=== PATIENT | male | born 1985 | race Caucasian/White ===

== ENCOUNTER 2018-12-13 11:44 | Inpatient (IN) | payer OTHER ==
--- NOTE | 2018-12-13 14:47 | HP ---
CIWA Score Nausea/Vomitin-Mild Nausea/No Vomiting Muscle Tremors: 4-Moderate,w/Arms Extend Anxiety: 4-Mod. Anxious/Guarded Agitation: 4-Moderately Restless Paroxysmal Sweats: 3 Orientation: 0-Oriented Tacttile Disturbances: 0-None Auditory Disturbances: 0-None Visual Disturbances: 0-None Headache: 2-Mild CIWA-Ar Total Score: 18 - Admission Criteria OASAS Guidelines: Admission for Medically Managed Detox: Requires at least one of the followin. CIWA greater than 12 2. Seizures within the past 24 hours 3. Delirium tremens within the past 24 hours 4. Hallucinations within the past 24 hours 5. Acute intervention needed for co occurring medical disorder 6. Acute intervention needed for co occurring psychiatric disorder 7. Severe withdrawal that cannot be handled at a lower level of care (continued vomiting, continued diarrhea, abnormal vital signs) requiring intravenous medication and/or fluids 8. Admission ROS [facility] Chief Complaint: Pt is a 33yr old male with a history of benzodiazapene dependence seeking detox for treatment. Pt belongs to a [facility] in [place], [place] and is familiar with our detox facility and is seeking detox. Allergies/Adverse Reactions: Allergies Allergy/AdvReac Type Severity Reaction Status Date / Time citalopram hydrobromide Allergy Severe Hives Verified 12/13/18 14:06 [From [facility]] History of Present Illness: pt is a 33yr old male with a history of valium dependence seeking detox for treatment. Exam Limitations: No Limitations - Ebola screening Have you traveled outside of the country in the last 21 days: No Have you had contact with anyone from an Ebola affected area: No Have you been sick,other than usual withdrawal symptoms: No Do you have a fever: No - Review of Systems Constitutional: Chills, Diaphoresis, Loss of Appetite, Night Sweats, Changes in sleep EENT: reports: Tearing, Nose Congestion Respiratory: reports: No Symptoms reported Cardiac: reports: No Symptoms Reported GI: reports: Nausea, Poor Appetite, Poor Fluid Intake, Indigestion : reports: No Symptoms Reported Musculoskeletal: reports: No Symptoms Reported Integumentary: reports: Flushing, Sweating Neuro: reports: Headache, Tingling, Tremors Endocrine: reports: Excessive Sweating, Flushing, Intolerance to Cold, Intolerance to Heat Hematology: reports: No Symptoms Reported Psychiatric: reports: Judgement Intact, Mood/Affect Appropiate, Orientated x3, Agitated, Anxious Other Systems: Reviewed and Negative Patient History - Patient Medical History Hx Anemia: No Hx Asthma: No Hx Chronic Obstructive Pulmonary Disease (COPD): No Hx Cancer: No Hx Cardiac Disorders: No Hx Congestive Heart Failure: No Hx Hypertension: Yes (currently not on medication) Hx Hypercholesterolemia: No Hx Pacemaker: No HX Cerebrovascular Accident: No Hx Seizures: No Hx Dementia: No Hx Diabetes: No Hx Gastrointestinal Disorders: Yes (acid reflux) Hx Liver Disease: No Hx Genitourinary Disorders: No Hx Sexually Transmitted Disorders: No Hx Renal Disease (ESRD): No Hx Thyroid Disease: No Hx Human Immunodeficiency Virus (HIV): No Hx Hepatitis C: No Hx Depression: Yes Hx Suicide Attempt: Yes (pill overdose at age 23) Hx Bipolar Disorder: Yes Hx Schizophrenia: No - Patient Surgical History Past Surgical History: No Hx Neurologic Surgery: No Hx Cataract Extraction: No Hx Cardiac Surgery: No Hx Lung Surgery: No Hx Breast Surgery: No Hx Breast Biopsy: No Hx Abdominal Surgery: No Hx Appendectomy: No Hx Cholecystectomy: No Hx Genitourinary Surgery: No Hx Section: No Hx Orthopedic Surgery: No Anesthesia Reaction: No - PPD History Previous Implant?: Yes Documented Results: Negative w/o proof Implanted On Prior R Admission?: Yes PPD to be Administered?: Yes - Reproductive History Patient is a Female of Child Bearing Age (11 -55 yrs old): No - Smoking Cessation Smoking history: Current every day smoker Have you smoked in the past 12 months: Yes Aproximately how many cigarettes per day: 20 Cigars Per Day: 0 Hx Chewing Tobacco Use: No Initiated information on smoking cessation: Yes 'Breaking Loose' booklet given: 12/13/18 - Substance & Tx. History Hx Alcohol Use: No Hx Substance Use: Yes Substance Use Type: Tranquilizers Hx Substance Use Treatment: Yes (last detox [facility] 3yrs ago 2016.) - Substances Abused Valium Route: Oral Frequency: Daily Amount used: 2 tabs. (10 mg.) Age of first use: 25 Date of Last Use: 12/13/18 Family Disease History - Family Disease History Family Disease History: CA: Mother (HAD CA. OF THE COLON AND ), Other: Father (DEPENDENT ON DRUGS) Admission Physical Exam [facility] - Vital Signs Vital Signs: Vital Signs - 24 hr 12/13/18 13:10 Temperature 99 F Pulse Rate 110 H Respiratory 20 Rate Blood Pressure 140/82 - Physical General Appearance: Yes: Appropriately Dressed, Moderate Distress, Tremorous, Irritable, Sweating, Anxious HEENTM: Yes: Hearing grossly Normal, Normal Voice, Nasal Congestion, Rhinorrhea Respiratory: Yes: Lungs Clear, Normal Breath Sounds, No Respiratory Distress Neck: Yes: No masses,lesions,Nodules Breast: Yes: Within Normal Limits Cardiology: Yes: Regular Rhythm, Regular Rate, S1, S2, Tachycardia Abdominal: Yes: Normal Bowel Sounds, Non Tender, Flat Genitourinary: Yes: Within Normal Limits Back: Yes: Normal Inspection Musculoskeletal: Yes: full range of Motion Extremities: Yes: Normal Capillary Refill, Normal Inspection, Tremors Neurological: Yes: Fully Oriented, Alert, Normal Response Integumentary: Yes: Normal Color, Diaphoresis Lymphatic: Yes: Within Normal Limits - Diagnostic (1) Anxiety Current Visit: Yes Status: Chronic (2) PTSD (post-traumatic stress disorder) Current Visit: Yes Status: Acute (3) Uncomplicated sedative, hypnotic or anxiolytic withdrawal Current Visit: Yes Status: Chronic (4) GERD (gastroesophageal reflux disease) Current Visit: Yes Status: Chronic Qualifiers: Esophagitis presence: without esophagitis Qualified Code(s): K21.9 - Gastro -esophageal reflux disease without esophagitis (5) HTN (hypertension) Current Visit: Yes Status: Chronic Qualifiers: Hypertension type: essential hypertension Qualified Code(s): I10 - Essential (primary) hypertension (6) Nicotine dependence Current Visit: Yes Status: Chronic Qualifiers: Nicotine product type: cigarettes Substance use status: uncomplicated Qualified Code(s): F17.210 - Nicotine dependence, cigarettes, uncomplicated (7) Panic attack Current Visit: No Status: Chronic (8) Schizoaffective disorder Current Visit: No Status: Chronic Qualifiers: Schizoaffective disorder type: unspecified Qualified Code(s): F25.9 - Schizoaffective disorder, unspecified Comment: Historical diagnosis. Cleared for Admission S - Detox or Rehab [facility] Level of Care: Medically Managed Detox Regimen/Protocol: Valium S Breath Alcohol Content Breath Alcohol Content: 0 Urine Drug Screen - Results Drug Screen Negative: No Urine Drug Screen Results: BZO-Benzodiazepines Inpatient Rehab Admission - Rehab Decision to Admit Inpatient rehab admission?: No
[2018-12-13] MEDS ORDERED: hydrOXYzine PAMOATE 25 MG CAPSULE (FP) PO PRN (14:48)
[2018-12-13] MEDS ORDERED: P-EPHED 60MG/TRIPROLIDI 2.5MG TABLET PO PRN (14:48)
[2018-12-13] MEDS ORDERED: MAGNESIUM HYDROX 2400MG/30ML ORAL SUSPENSION 30 ML CUP PO PRN (14:48)
[2018-12-13] MEDS ORDERED: diazePAM 5 MG TABLET PO ONE (14:48)
[2018-12-13] MEDS ORDERED: ACETAMINOPHEN 325 MG TABLET (FP) PO PRN (14:48)
[2018-12-13] MEDS ORDERED: MAGNESIUM CITRATE 300 ML BOTTLE PO PRN (14:48)
[2018-12-13] MEDS ORDERED: MENTHOL/PHENOL 1 EACH UD MM PRN (14:48)
[2018-12-13] MEDS ORDERED: BISMUTH SUBSALICYLATE 524 MG/30 ML UD PO PRN (14:48)
[2018-12-13] MEDS ORDERED: ONDANSETRON *ODT* 4 MG TABLET SL PRN (14:48)
[2018-12-13] MEDS: BACLOFEN 10 MG TABLET (FP) PO SCH ×2 (17:20→22:39)
[2018-12-13] MEDS: IBUPROFEN 400 MG TABLET (FP) PO PRN (19:16)
[2018-12-13] MEDS: diazePAM 5 MG TABLET PO SCH (22:38)
[2018-12-14] MEDS: diazePAM 5 MG TABLET PO SCH ×3 (05:19→22:53)
[2018-12-14] MEDS: BACLOFEN 10 MG TABLET (FP) PO SCH ×3 (06:18→22:53)
[2018-12-14] MEDS: NICOTINE POLACRILEX 4 MG GUM BUC PRN ×3 (09:28→17:14)
[2018-12-14] MEDS: PANTOPRAZOLE 40 MG TABLET (FP) PO SCH (10:21)
[2018-12-14] MEDS: PRENATAL VITAMINS W/ FOLIC ACID TABLET (FP) PO SCH (10:21)
[2018-12-14] MEDS: diazePAM 5 MG TABLET PO PRN (10:21)
[2018-12-14] MEDS: THIAMINE HCL 100 MG TABLET (FP) PO SCH (10:21)
[2018-12-14] MEDS: NICOTINE 21 MG/24 HOURS TOPICAL PATCH TD SCH (10:22)
[2018-12-14 10:37] LABS: ALBUMIN 4.4 g/dl (3.4-5.0); ALK PHOS 100 U/L (45-117); ANION GAP 10 MMOL/L (8-16); BILIRUBIN,TOTAL 0.8 mg/dL (0.2-1); BLOOD UREA NITROGEN 17 mg/dL (7-18); CALCIUM 9.3 mg/dL (8.5-10.1); CHLORIDE 108 mmol/L (98-107); CO2 21 mmol/L (21-32); CREATININE 1.1 mg/dL (0.55-1.3); GLUCOSE,RANDOM 104 mg/dL (74-106); POTASSIUM 3.8 mmol/L (3.5-5.1); SGOT/AST 24 U/L (15-37); SGPT/ALT 34 U/L (13-61); SODIUM 139 mmol/L (136-145); TOT PROT 8.1 g/dl (6.4-8.2)
[2018-12-14 10:38] LABS: HEMATOCRIT 43.3 % (35.4-49); MCH 30.3 pg (25.7-33.7); MCHC 34.7 g/dl (32.0-35.9); MEAN CELL VOLUME 87.4 fl (80-96); MEAN PLT VOLUME 9.7 fl (7.5-11.1); PLATELET COUNT 180 K/MM3 (134-434); RBC 4.95 M/mm3 (4.00-5.60); RDW 13.9 % (11.9-15.9); WHITE BLOOD COUNT 8.7 K/mm3 (4.0-10.0)
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
--- NOTE | 2018-12-14 14:05 | EKG ---
Test Reason : Blood Pressure : / mmHG Vent. Rate : 098 BPM Atrial Rate : 098 BPM P-R Int : 134 ms QRS Dur : 084 ms QT Int : 354 ms P-R-T Axes : 049 059 052 degrees QTc Int : 451 ms NORMAL SINUS RHYTHM NONSPECIFIC T WAVE ABNORMALITY ABNORMAL ECG NO PREVIOUS ECGS AVAILABLE Confirmed by YANELI WALKER, VENANCIO ([id number]) on 12/14/2018 2:05:28 PM Referred By: Confirmed By:VENANCIO GROVES MD
[2018-12-14] MEDS: SERTRALINE HCL 50 MG TABLET (FP) PO SCH (15:57)
--- NOTE | 2018-12-14 16:37 | PN ---
S CIWA - CIWA Score Nausea/Vomitin-Mild Nausea/No Vomiting Muscle Tremors: 2 Anxiety: 4-Mod. Anxious/Guarded Agitation: 3 Paroxysmal Sweats: 1-Minimal Palms Moist Orientation: 1-Uncertain about Date Tacttile Disturbances: 0-None Auditory Disturbances: 0-None Visual Disturbances: 0-None Headache: 1-Very Mild CIWA-Ar Total Score: 13 S Progress Note (SOAP) Subjective: anxiety restlessness sweating overly worry after lunch patient appears calmer better concentration Objective: 12/14/18 16:40 Vital Signs Temperature 98.1 F 12/14/18 13:23 Pulse Rate 114 H 12/14/18 13:23 Respiratory Rate 20 12/14/18 13:23 Blood Pressure 144/93 12/14/18 13:23 O2 Sat by Pulse Oximetry (%) Laboratory Last Values WBC 8.7 K/mm3 (4.0-10.0) 12/14/18 06:00 RBC 4.95 M/mm3 (4.00-5.60) 12/14/18 06:00 Hgb 15.0 GM/dL (11.7-16.9) 12/14/18 06:00 Hct 43.3 % (35.4-49) 12/14/18 06:00 MCV 87.4 fl (80-96) 12/14/18 06:00 MCH 30.3 pg (25.7-33.7) 12/14/18 06:00 MCHC 34.7 g/dl (32.0-35.9) 12/14/18 06:00 RDW 13.9 % (11.9-15.9) 12/14/18 06:00 Plt Count 180 K/MM3 (134-434) 12/14/18 06:00 MPV 9.7 fl (7.5-11.1) D 12/14/18 06:00 Sodium 139 mmol/L (136-145) 12/14/18 06:00 Potassium 3.8 mmol/L (3.5-5.1) 12/14/18 06:00 Chloride 108 mmol/L (98-107) H 12/14/18 06:00 Carbon Dioxide 21 mmol/L (21-32) 12/14/18 06:00 Anion Gap 10 MMOL/L (8-16) 12/14/18 06:00 BUN 17 mg/dL (7-18) 12/14/18 06:00 Creatinine 1.1 mg/dL (0.55-1.3) 12/14/18 06:00 Creat Clearance w eGFR > 60 (>60) 12/14/18 06:00 Random Glucose 104 mg/dL (74-106) 12/14/18 06:00 Calcium 9.3 mg/dL (8.5-10.1) 12/14/18 06:00 Total Bilirubin 0.8 mg/dL (0.2-1) 12/14/18 06:00 AST 24 U/L (15-37) 12/14/18 06:00 ALT 34 U/L (13-61) 12/14/18 06:00 Alkaline Phosphatase 100 U/L (45-117) 12/14/18 06:00 Total Protein 8.1 g/dl (6.4-8.2) 12/14/18 06:00 Albumin 4.4 g/dl (3.4-5.0) 12/14/18 06:00 RPR Titer Nonreactive (NONREACTIVE) 12/14/18 06:00 HIV 1&2 Antibody Screen Negative 12/13/18 14:50 HIV P24 Antigen Negative 12/13/18 14:50 lab noted 12/14/18 16:40 Assessment: 12/14/18 16:41 withdrawal sx Plan: continue detox
[2018-12-14] MEDS: QUEtiapine FUMARATE 50 MG TABLET PO SCH (22:52)
[2018-12-15] MEDS: diazePAM 5 MG TABLET PO PRN (06:32)
[2018-12-15] MEDS: BACLOFEN 10 MG TABLET (FP) PO SCH ×3 (06:32→23:04)
[2018-12-15] MEDS: NICOTINE POLACRILEX 4 MG GUM BUC PRN ×4 (06:34→16:42)
[2018-12-15] MEDS: PRENATAL VITAMINS W/ FOLIC ACID TABLET (FP) PO SCH (10:13)
[2018-12-15] MEDS: NICOTINE 21 MG/24 HOURS TOPICAL PATCH TD SCH (10:13)
[2018-12-15] MEDS: SERTRALINE HCL 50 MG TABLET (FP) PO SCH (10:13)
[2018-12-15] MEDS: diazePAM 5 MG TABLET PO SCH ×2 (10:13→23:04)
[2018-12-15] MEDS: THIAMINE HCL 100 MG TABLET (FP) PO SCH (10:13)
[2018-12-15] MEDS: PANTOPRAZOLE 40 MG TABLET (FP) PO SCH (10:13)
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
[2018-12-15] MEDS ORDERED: cloNIDine HCL 0.1 MG TABLET PO ONE (15:45)
--- NOTE | 2018-12-15 16:49 | PN ---
Psychiatric Progress Note Vital Signs: Vital Signs Period Temp Pulse Resp BP Sys/Beaver Pulse Ox Last 24 Hr 96.4 F-98.9 F 76-105 16-18 133-151/68-89 Date of Session: 12/15/18 Chief Complaint:: " I apologize for my behavior. I was wrong. I was angry ". HPI: Day 3 of detoxification. Hospital course was uneventful until the patient started acting out on the unit (using profanities, racial slurs, pacing in hallways, threatening to fight a male staff). Reason : unclear. Patient was referred for a psychiatric re-evaluation. ROS: Unremarkable. No somatic complaints. Patient is ambulatory, calm, alert and fully oriented. Current Medications: Active Medications Generic Name Dose Route Start Last Admin Trade Name Freq PRN Reason Stop Dose Admin Acetaminophen 650 mg 12/13/18 14:48 Tylenol - PO Q6H PRN PAIN LEVEL 4 - 6 Acetaminophen 650 mg 12/13/18 14:48 Tylenol - PO Q6H PRN FEVER Al Hydroxide/Mg Hydroxide 30 ml 12/13/18 14:48 Mylanta Oral Suspension - PO Q6H PRN DYSPEPSIA Baclofen 10 mg 12/13/18 15:00 12/15/18 14:00 Lioresal - PO 12/19/18 14:49 10 mg Q8H LORENA Administration Bismuth Subsalicylate 524 mg 12/13/18 14:48 12/14/18 16:00 Pepto-Bismol - PO 524 mg Q1H PRN Administration DIARRHEA Clonidine 0.1 mg 12/15/18 22:00 Catapres - PO BID LORENA Diazepam 5 mg 12/15/18 10:00 12/15/18 10:13 Valium - PO 12/15/18 22:01 5 mg BID LORENA Administration Diazepam 5 mg 12/16/18 06:00 Valium - PO 12/16/18 06:01 DAILY LORENA Diazepam 10 mg 12/13/18 14:48 12/15/18 06:32 Valium - PO 12/16/18 14:47 10 mg Q4H PRN Administration WITHDRAWAL(CONT SUBST) Eucalyptus/Menthol/Phenol/Sorbitol 1 each 12/13/18 14:48 Cepastat Lozenge - MM 12/19/18 14:48 Q4H PRN SORE THROAT Hydroxyzine Pamoate 25 mg 12/13/18 14:48 Vistaril - PO 12/19/18 14:48 Q6H PRN For Anxiety Ibuprofen 400 mg 12/13/18 14:48 12/13/18 19:16 Motrin - PO 400 mg Q6H PRN Administration PAIN LEVEL 1 - 3 Magnesium Citrate 300 ml 12/13/18 14:48 Citroma - PO Q48H PRN CONSTIPATION Magnesium Hydroxide 30 ml 12/13/18 14:48 Milk Of Magnesia - PO PRN PRN CONSTIPATION Melatonin 5 mg 12/13/18 14:48 Melatonin PO HS PRN INSOMNIA Nicotine 21 mg 12/14/18 10:00 12/15/18 10:13 Nicoderm Patch - TD Not Given DAILY LORENA Nicotine Polacrilex 4 mg 12/13/18 14:48 12/15/18 16:42 Nicorette Gum - BUC 4 mg Q2H PRN Administration NICOTINE REPLACEMENT RX Ondansetron HCl 4 mg 12/13/18 14:48 12/14/18 12:15 Zofran Odt - SL 12/19/18 14:48 4 mg Q12H PRN Administration Nausea/Vomiting Pantoprazole Sodium 40 mg 12/14/18 10:00 12/15/18 10:13 Protonix - PO 40 mg DAILY LORENA Administration Multivit/Folic Acid/Iron 1 tab 12/14/18 10:00 12/15/18 10:13 Vitamins (Sjr) - PO 1 tab DAILY LORENA Administration Pseudoephedrine/Triprolidine 1 combo 12/13/18 14:48 Actifed - PO 12/19/18 14:49 Q6H PRN NASAL CONGESTION Quetiapine Fumarate 50 mg 12/14/18 22:00 12/14/18 22:52 Seroquel - PO Not Given HS LORENA Sertraline HCl 50 mg 12/14/18 14:05 12/15/18 10:13 Zoloft - PO 50 mg DAILY LORENA Administration Thiamine HCl 100 mg 12/14/18 10:00 12/15/18 10:13 Vitamin B1 - PO 100 mg DAILY LORENA Administration Medication(s) Change(s): Medications reviewed. Will increase seroquel to 100 mg po hs. Side effects/benefits discussed. Patient is in agreement with this intervention. Current Side Effect: No Lab tests ordered: No Lab tests reviewed: Yes Provider note:: Chart reviewed. news operations manager Harper's note of 12/14/18 : appreciated. Patient is interviewed. Mr Leslie presented as a good historian. Found to be calm, apologetic, apprehensive about the possible consequences of his behavior (administrative discharge, interruption of detoxification and cancellation of an already planned admission to [facility]) and remorseful about the distress caused to others by his outburst. " What I did was wrong. I have no right to be in this man's face with threats. I did not come here for that. I was angry at my girl on the phone. We are going through a rough time. This is not a reason to go off on the staff. I apologize for my behavior and I hope that people will understand ". Interview went well : patient maintains adequate impulse control; answers questions appropriately; expresses contrition for his actions and promises adherence to unit rules + regulations. No psychosis or jairo elicited. No suicidal or homicidal ideation, intent or plan. Mr Leslie has regained his composure and he is now fearful of having compromised his plan of rehabilitation. Patient is stable. He does NOT meet criteria for transfer to a psychiatric institution. Firm limits are set : treatment will continue on the condition that rules and boundaries are NOT violated. Mr Leslie has verbalized his understanding and acquiesced to adherence to regulations. Discussed with the Multidisciplinary team. Case has also been revisited with nurse fabrication supervisor Richard + senior program manager Jada Son. Total face to face time:: 65 Mental Status Exam - Mental Status Exam Alert and Oriented to: Time, Place, Person Cognitive Function: Good Patient Appearance: Well Groomed Mood: Apprehensive, Hopeful Affect: Appropriate, Normal Range Patient Behavior: Appropriate, Cooperative Speech Pattern: Clear, Appropriate Voice Loudness: Normal Thought Process: Goal Oriented Thought Disorder: Not Present Hallucinations: Denies Suicidal Ideation: Denies Homicidal Ideation: Denies Insight/Judgement: Fair Sleep: Well Appetite: Good Muscle strength/Tone: Normal Gait/Station: Normal Psychiatric Treatment Plan - Problem List (1) Uncomplicated sedative, hypnotic or anxiolytic withdrawal Current Visit: Yes Comment: . (2) Nicotine dependence Current Visit: Yes Qualifiers: Nicotine product type: cigarettes Substance use status: uncomplicated Qualified Code(s): F17.210 - Nicotine dependence, cigarettes, uncomplicated Comment: . (3) Schizoaffective disorder Current Visit: Yes Qualifiers: Schizoaffective disorder type: unspecified Qualified Code(s): F25.9 - Schizoaffective disorder, unspecified Comment: .As per self-report and records.
[2018-12-15] MEDS: cloNIDine HCL 0.1 MG TABLET PO SCH (23:04)
[2018-12-15] MEDS: QUEtiapine FUMARATE 50 MG TABLET PO SCH (23:04)
[2018-12-16] MEDS: NICOTINE POLACRILEX 4 MG GUM BUC PRN ×5 (05:12→21:25)
[2018-12-16] MEDS ORDERED: diazePAM 5 MG TABLET PO SCH (06:00)
[2018-12-16] MEDS: BACLOFEN 10 MG TABLET (FP) PO SCH ×3 (06:24→22:00)
[2018-12-16] MEDS: SERTRALINE HCL 50 MG TABLET (FP) PO SCH (10:40)
[2018-12-16] MEDS: THIAMINE HCL 100 MG TABLET (FP) PO SCH (10:40)
[2018-12-16] MEDS: PRENATAL VITAMINS W/ FOLIC ACID TABLET (FP) PO SCH (10:40)
[2018-12-16] MEDS: PANTOPRAZOLE 40 MG TABLET (FP) PO SCH (10:40)
[2018-12-16] MEDS: cloNIDine HCL 0.1 MG TABLET PO SCH ×2 (10:41→21:23)
[2018-12-16] MEDS: NICOTINE 21 MG/24 HOURS TOPICAL PATCH TD SCH (10:41)
--- NOTE | 2018-12-16 14:16 | DS ---
[facility] Detox Discharge Summary Admission Date: 12/13/18 Discharge Date: 12/16/18 - History Present History: Sedative Dependence Additional Comments: PATIENT REPORTS THAT CURRENT WITHDRAWAL SYMPTOMS ARE MINIMAL AND THAT HE FEELS WELL OVERALL AT TIME OF DISCHARGE FROM DETOX UNIT. PATIENT GOING TO [facility] ([place], [place]) FOR AFTERCARE. PATIENT WAS DISCHARGED FROM DETOX UNIT TO BE TAKEN OVER TO REHAB UNIT IN STABLE MEDICAL CONDITION. Pertinent Past History: HTN, G.E.R.D., Depressive Disorder, Schizoaffective Disorder, History of Bipolar Disorder, Nicotine Dependence, Anxiety, History Of Panic Attacks, History Of P.T.S.D. - Physical Exam Results Vital Signs: Vital Signs Temperature 98.4 F 12/16/18 13:50 Pulse Rate 100 H 12/16/18 13:50 Respiratory Rate 20 12/16/18 13:50 Blood Pressure 97/58 L 12/16/18 13:50 O2 Sat by Pulse Oximetry (%) Pertinent Admission Physical Exam Findings: WITHDRAWAL SYMPTOMS. Laboratory Tests 12/13/18 12/14/18 12/14/18 14:50 06:00 06:00 WBC 8.7 RBC 4.95 Hgb 15.0 Hct 43.3 MCV 87.4 MCH 30.3 MCHC 34.7 RDW 13.9 Plt Count 180 MPV 9.7 D Sodium 139 Potassium 3.8 Chloride 108 H Carbon Dioxide 21 Anion Gap 10 BUN 17 Creatinine 1.1 Creat Clearance w eGFR > 60 Random Glucose 104 Calcium 9.3 Total Bilirubin 0.8 AST 24 ALT 34 Alkaline Phosphatase 100 Total Protein 8.1 Albumin 4.4 RPR Titer HIV 1&2 Antibody Screen Negative HIV P24 Antigen Negative 12/14/18 06:00 WBC RBC Hgb Hct MCV MCH MCHC RDW Plt Count MPV Sodium Potassium Chloride Carbon Dioxide Anion Gap BUN Creatinine Creat Clearance w eGFR Random Glucose Calcium Total Bilirubin AST ALT Alkaline Phosphatase Total Protein Albumin RPR Titer Nonreactive HIV 1&2 Antibody Screen HIV P24 Antigen LABS NOTED. - Treatment Hospital Course: Detox Protocol Followed, Detoxed Safely, Responded well, Discharged Condition Good, Rehab Referral Accepted Patient has Accepted a Rehab Referral to: [facility] ([place], [place]). - Medication Discharge Medications: Ambulatory Orders Pantoprazole Sodium [Protonix -] 40 mg PO DAILY #30 tablet.ec 07/11/16 - Diagnosis (1) Depressive disorder Current Visit: Yes Status: Acute (2) Anxiety Current Visit: Yes Status: Chronic (3) GERD (gastroesophageal reflux disease) Current Visit: Yes Status: Chronic Qualifiers: Esophagitis presence: without esophagitis Qualified Code(s): K21.9 - Gastro -esophageal reflux disease without esophagitis (4) HTN (hypertension) Current Visit: Yes Status: Chronic Qualifiers: Hypertension type: essential hypertension Qualified Code(s): I10 - Essential (primary) hypertension (5) Nicotine dependence Current Visit: Yes Status: Chronic Qualifiers: Nicotine product type: cigarettes Substance use status: uncomplicated Qualified Code(s): F17.210 - Nicotine dependence, cigarettes, uncomplicated (6) PTSD (post-traumatic stress disorder) Current Visit: Yes Status: Chronic (7) Schizoaffective disorder Current Visit: Yes Status: Chronic Qualifiers: Schizoaffective disorder type: unspecified Qualified Code(s): F25.9 - Schizoaffective disorder, unspecified (8) Uncomplicated sedative, hypnotic or anxiolytic withdrawal Current Visit: Yes Status: Chronic (9) Panic attack Current Visit: No Status: Chronic - AMA Did Patient Leave Against Medical Advice: No
[2018-12-16 14:17] VITALS: BMI 30.5
--- NOTE | 2018-12-16 14:27 | HP ---
[facility] Rehab Assess/Revision - Admission History Admitted to Rehab from: [facility] Date of Admission to Rehab: 12/16/2018 - Vital signs Vital Signs: Vital Signs Period Temp Pulse Resp BP Sys/Beaver Pulse Ox Last 24 Hr 92.4 F-98.4 F 74-107 18-20 97-151/58-88 - Findings Detox History & Physical reviewed: Yes Concur with findings: Yes Comments/Additional Findings: PATIENT'S MEDICAL / MEDICATION HISTORY REVIEWED PRIOR TO DISCHARGE FROM DETOX UNIT. PATIENT WAS DISCHARGED FROM DETOX UNIT TO BE TAKEN TO REHAB UNIT IN STABLE MEDICAL CONDITION. Inpatient Rehab Admission - Rehab Decision to Admit Inpatient rehab admission?: Yes - Initial Determination Are CD services needed?: Yes Free of communicable disease: Yes Not in need of hospitalization: Yes - Rehab Admission Criteria Previous failed treatment: Yes Poor recovery environment: No Comorbidities: Yes Lacks judgement: Yes Patient is meeting Inpatient Rehab admission criteria:: Yes
[2018-12-16] MEDS: LIDOCAINE 5% TOPICAL PATCH TP SCH (15:22)
[2018-12-16] MEDS: QUEtiapine FUMARATE 50 MG TABLET PO SCH (21:23)
[2018-12-16] MEDS: LIDOCAINE PATCH REMOVAL MC SCH (21:23)
[2018-12-16] MEDS: MELATONIN 5 MG TABLETS PO PRN (21:24)
[2018-12-17] MEDS: BACLOFEN 10 MG TABLET (FP) PO SCH ×3 (06:31→22:06)
[2018-12-17] MEDS: NICOTINE POLACRILEX 4 MG GUM BUC PRN ×5 (06:32→21:36)
[2018-12-17] MEDS: LIDOCAINE 5% TOPICAL PATCH TP SCH (10:06)
[2018-12-17] MEDS: NICOTINE 21 MG/24 HOURS TOPICAL PATCH TD SCH (10:06)
[2018-12-17] MEDS: PRENATAL VITAMINS W/ FOLIC ACID TABLET (FP) PO SCH (10:07)
[2018-12-17] MEDS: THIAMINE HCL 100 MG TABLET (FP) PO SCH (10:07)
[2018-12-17] MEDS: PANTOPRAZOLE 40 MG TABLET (FP) PO SCH (10:07)
[2018-12-17] MEDS: SERTRALINE HCL 50 MG TABLET (FP) PO SCH (10:07)
[2018-12-17] MEDS: cloNIDine HCL 0.1 MG TABLET PO SCH ×2 (10:07→21:34)
[2018-12-17] MEDS: LIDOCAINE PATCH REMOVAL MC SCH (21:34)
[2018-12-17] MEDS: QUEtiapine FUMARATE 50 MG TABLET PO SCH (21:34)
[2018-12-17] MEDS: MELATONIN 5 MG TABLETS PO PRN (21:35)
[2018-12-18] MEDS: BACLOFEN 10 MG TABLET (FP) PO SCH ×3 (06:22→23:12)
[2018-12-18] MEDS: NICOTINE POLACRILEX 4 MG GUM BUC PRN ×6 (06:23→21:28)
[2018-12-18] MEDS: PANTOPRAZOLE 40 MG TABLET (FP) PO SCH (09:56)
[2018-12-18] MEDS: LIDOCAINE 5% TOPICAL PATCH TP SCH (09:56)
[2018-12-18] MEDS: PRENATAL VITAMINS W/ FOLIC ACID TABLET (FP) PO SCH (09:56)
[2018-12-18] MEDS: cloNIDine HCL 0.1 MG TABLET PO SCH ×2 (09:56→21:27)
[2018-12-18] MEDS: THIAMINE HCL 100 MG TABLET (FP) PO SCH (09:56)
[2018-12-18] MEDS: SERTRALINE HCL 50 MG TABLET (FP) PO SCH (09:56)
[2018-12-18] MEDS: NICOTINE 21 MG/24 HOURS TOPICAL PATCH TD SCH (09:58)
[2018-12-18] MEDS: QUEtiapine FUMARATE 50 MG TABLET PO SCH (21:27)
[2018-12-18] MEDS: LIDOCAINE PATCH REMOVAL MC SCH (21:28)
[2018-12-19] MEDS: BACLOFEN 10 MG TABLET (FP) PO SCH (06:26)
[2018-12-19] MEDS: NICOTINE POLACRILEX 4 MG GUM BUC PRN ×5 (06:27→21:22)
[2018-12-19] MEDS: ACETAMINOPHEN 325 MG TABLET (FP) PO PRN (06:52)
[2018-12-19] MEDS: PANTOPRAZOLE 40 MG TABLET (FP) PO SCH (09:52)
[2018-12-19] MEDS: PRENATAL VITAMINS W/ FOLIC ACID TABLET (FP) PO SCH (09:52)
[2018-12-19] MEDS: LIDOCAINE 5% TOPICAL PATCH TP SCH (09:52)
[2018-12-19] MEDS: SERTRALINE HCL 50 MG TABLET (FP) PO SCH (09:52)
[2018-12-19] MEDS: cloNIDine HCL 0.1 MG TABLET PO SCH ×2 (09:52→21:21)
[2018-12-19] MEDS: THIAMINE HCL 100 MG TABLET (FP) PO SCH (09:52)
[2018-12-19] MEDS: NICOTINE 21 MG/24 HOURS TOPICAL PATCH TD SCH (09:52)
[2018-12-19] MEDS: QUEtiapine FUMARATE 50 MG TABLET PO SCH (21:21)
[2018-12-19] MEDS: LIDOCAINE PATCH REMOVAL MC SCH (21:21)
[2018-12-20] MEDS: cloNIDine HCL 0.1 MG TABLET PO SCH ×2 (09:52→21:16)
[2018-12-20] MEDS: THIAMINE HCL 100 MG TABLET (FP) PO SCH (09:52)
[2018-12-20] MEDS: PRENATAL VITAMINS W/ FOLIC ACID TABLET (FP) PO SCH (09:52)
[2018-12-20] MEDS: PANTOPRAZOLE 40 MG TABLET (FP) PO SCH (09:52)
[2018-12-20] MEDS: LIDOCAINE 5% TOPICAL PATCH TP SCH (09:52)
[2018-12-20] MEDS: SERTRALINE HCL 50 MG TABLET (FP) PO SCH (09:52)
[2018-12-20] MEDS: NICOTINE 21 MG/24 HOURS TOPICAL PATCH TD SCH (09:53)
[2018-12-20] MEDS: NICOTINE POLACRILEX 4 MG GUM BUC PRN ×3 (09:54→21:16)
[2018-12-20] MEDS: IBUPROFEN 400 MG TABLET (FP) PO PRN (12:58)
[2018-12-20] MEDS ORDERED: hydrOXYzine PAMOATE 25 MG CAPSULE (FP) PO ONE (15:40)
--- NOTE | 2018-12-20 15:42 | PN ---
[facility] Progress Note (SOAP) Subjective: client is feeling anxious. states he has a hx of anxiety and depression, now triggered by being here, Objective: 12/20/18 15:41 denies harm to self and others, denies suicidal thoughts, does endorse feeling anxious. Assessment: 12/20/18 15:42 Anxiety Plan: Vistaril 25mg once ordered.
--- NOTE | 2018-12-20 16:29 | PN ---
Psychiatric Progress Note Vital Signs: Vital Signs Period Temp Pulse Resp BP Sys/Beaver Pulse Ox Last 24 Hr 98.1 F 109 20-20 124/76 Date of Session: 12/20/18 Chief Complaint:: " I was feeling anxious ". HPI: Day 4 in rehabilitation. Patient has been doing fine until today when he approached staff with complaint of jitteriness and anxious mood. Psychiatric re- consult is requested to address the patient's distress and determine proper disposition (Dr Shore alerted the consultation team via messaging). Mr Leslie came to [address] after completing detoxification on . ROS: Noted as ambulatory, alert and fully oriented. Calm and cooperative. Found calmy sitting at a table, making a telephone call. No evidence of acute distress. Current Medications: Active Medications Generic Name Dose Route Start Last Admin Trade Name Freq PRN Reason Stop Dose Admin Acetaminophen 650 mg 12/13/18 14:48 12/19/18 06:52 Tylenol - PO 650 mg Q6H PRN Administration PAIN LEVEL 4 - 6 Acetaminophen 650 mg 12/13/18 14:48 Tylenol - PO Q6H PRN FEVER Al Hydroxide/Mg Hydroxide 30 ml 12/13/18 14:48 Mylanta Oral Suspension - PO Q6H PRN DYSPEPSIA Bismuth Subsalicylate 524 mg 12/13/18 14:48 12/14/18 16:00 Pepto-Bismol - PO 524 mg Q1H PRN Administration DIARRHEA Clonidine 0.1 mg 12/15/18 22:00 12/20/18 09:52 Catapres - PO 0.1 mg BID LORENA Administration Ibuprofen 400 mg 12/13/18 14:48 12/20/18 12:58 Motrin - PO 400 mg Q6H PRN Administration PAIN LEVEL 1 - 3 Lidocaine 1 patch 12/16/18 15:00 12/20/18 09:52 Lidoderm Patch - TP 1 patch DAILY LORENA Administration Magnesium Citrate 300 ml 12/13/18 14:48 Citroma - PO Q48H PRN CONSTIPATION Magnesium Hydroxide 30 ml 12/13/18 14:48 Milk Of Magnesia - PO PRN PRN CONSTIPATION Melatonin 5 mg 12/13/18 14:48 12/17/18 21:35 Melatonin PO 5 mg HS PRN Administration INSOMNIA Miscellaneous 1 each 12/16/18 22:00 12/19/18 21:21 Lidoderm Patch Removal MC 1 each DAILY@2200 LORENA Administration Nicotine 21 mg 12/14/18 10:00 12/20/18 09:53 Nicoderm Patch - TD Not Given DAILY LORENA Nicotine Polacrilex 4 mg 12/13/18 14:48 12/20/18 09:54 Nicorette Gum - BUC 4 mg Q2H PRN Administration NICOTINE REPLACEMENT RX Pantoprazole Sodium 40 mg 12/14/18 10:00 12/20/18 09:52 Protonix - PO 40 mg DAILY LORENA Administration Multivit/Folic Acid/Iron 1 tab 12/14/18 10:00 12/20/18 09:52 Vitamins (Sjr) - PO 1 tab DAILY LORENA Administration Quetiapine Fumarate 100 mg 12/20/18 22:00 Seroquel - PO HS LORENA Sertraline HCl 50 mg 12/14/18 14:05 12/20/18 09:52 Zoloft - PO 50 mg DAILY LORENA Administration Thiamine HCl 100 mg 12/14/18 10:00 12/20/18 09:52 Vitamin B1 - PO 100 mg DAILY LORENA Administration Medication(s) Change(s): Medications discussed. In response to the report of transient episodes of anxiety. Mood stabilizers reviewed with the patient. He is presented with a selection of different agents (topiramate, lamotrigine, oxcarbazepine, carbamazepine). Depakote was excluded (rejected by the patient). Mr Leslie chose the option of titration of seroquel, 100 mg po hs, with the full knowledge of its side effects (sedation, metabolic syndrome, movement disorder) . Patient has expressed the wish to reflect on the proposed choices of mood stabilizers before making own decision. Current Side Effect: No Lab tests ordered: No Lab tests reviewed: Yes Provider note:: Chart reviewed. Progress notes for all disciplines are appreciated. Met with the patient to address his concerns. Noted as pleasant, friendly, communicative and well-controlled. " I was a little anxious but not to the point of losing control or hurt myself. It happens once in a while. I miss my family and my girlfriend ". Patient is provided time and space to ventilate. Admits to feeling much better at end of session. Promises to work with the psychiatrist on the issue of optimization of his medication regimen. No complaint of suicidal/homicidal ideation, intent or plan. Stable mental status. Mr Leslie remains focused on continuing treatment at [facility]. No clinical indication for a transfer to a psychiatric institution. Total face to face time:: 35 Mental Status Exam - Mental Status Exam Alert and Oriented to: Time, Place, Person Cognitive Function: Good Patient Appearance: Well Groomed Mood: Hopeful Affect: Appropriate, Normal Range Patient Behavior: Appropriate, Cooperative Speech Pattern: Clear Voice Loudness: Normal Thought Process: Intact, Goal Oriented Thought Disorder: Not Present Hallucinations: Denies Suicidal Ideation: Denies Homicidal Ideation: Denies Insight/Judgement: Fair (much improved) Sleep: Fair Appetite: Good Muscle strength/Tone: Normal Gait/Station: Normal Psychiatric Treatment Plan - Problem List (1) Uncomplicated sedative, hypnotic or anxiolytic withdrawal Current Visit: Yes Comment: . (2) Nicotine dependence Current Visit: Yes Qualifiers: Nicotine product type: cigarettes Substance use status: uncomplicated Qualified Code(s): F17.210 - Nicotine dependence, cigarettes, uncomplicated Comment: . (3) Schizoaffective disorder Current Visit: Yes Qualifiers: Schizoaffective disorder type: unspecified Qualified Code(s): F25.9 - Schizoaffective disorder, unspecified Comment: .As per self-report and records.
[2018-12-20] MEDS: MELATONIN 5 MG TABLETS PO PRN (21:16)
[2018-12-20] MEDS: QUEtiapine FUMARATE 100 MG TABLET (FP) PO SCH (21:55)
[2018-12-20] MEDS: LIDOCAINE PATCH REMOVAL MC SCH (23:11)
[2018-12-21] MEDS: NICOTINE POLACRILEX 4 MG GUM BUC PRN ×6 (06:29→21:08)
[2018-12-21] MEDS: PRENATAL VITAMINS W/ FOLIC ACID TABLET (FP) PO SCH (10:00)
[2018-12-21] MEDS: THIAMINE HCL 100 MG TABLET (FP) PO SCH (10:00)
[2018-12-21] MEDS: PANTOPRAZOLE 40 MG TABLET (FP) PO SCH (10:00)
[2018-12-21] MEDS: SERTRALINE HCL 50 MG TABLET (FP) PO SCH (10:01)
[2018-12-21] MEDS: cloNIDine HCL 0.1 MG TABLET PO SCH ×2 (10:01→21:07)
[2018-12-21] MEDS: LIDOCAINE 5% TOPICAL PATCH TP SCH (10:01)
[2018-12-21] MEDS: IBUPROFEN 400 MG TABLET (FP) PO PRN (10:01)
[2018-12-21] MEDS: NICOTINE 21 MG/24 HOURS TOPICAL PATCH TD SCH (10:01)
[2018-12-21] MEDS: hydrOXYzine PAMOATE 50 MG CAPSULE (FP) PO PRN (21:07)
[2018-12-21] MEDS: MELATONIN 5 MG TABLETS PO PRN (21:07)
[2018-12-21] MEDS: LIDOCAINE PATCH REMOVAL MC SCH (21:08)
[2018-12-21] MEDS: QUEtiapine FUMARATE 100 MG TABLET (FP) PO SCH (21:08)
[2018-12-22] MEDS: NICOTINE 21 MG/24 HOURS TOPICAL PATCH TD SCH (09:52)
[2018-12-22] MEDS: LIDOCAINE 5% TOPICAL PATCH TP SCH (09:52)
[2018-12-22] MEDS: PANTOPRAZOLE 40 MG TABLET (FP) PO SCH (09:52)
[2018-12-22] MEDS: cloNIDine HCL 0.1 MG TABLET PO SCH ×2 (09:52→21:10)
[2018-12-22] MEDS: THIAMINE HCL 100 MG TABLET (FP) PO SCH (09:52)
[2018-12-22] MEDS: PRENATAL VITAMINS W/ FOLIC ACID TABLET (FP) PO SCH (09:52)
[2018-12-22] MEDS: SERTRALINE HCL 50 MG TABLET (FP) PO SCH (09:52)
[2018-12-22] MEDS: NICOTINE POLACRILEX 4 MG GUM BUC PRN ×6 (09:54→23:13)
[2018-12-22] MEDS: hydrOXYzine PAMOATE 50 MG CAPSULE (FP) PO PRN (17:58)
[2018-12-22] MEDS: MELATONIN 5 MG TABLETS PO PRN (21:10)
[2018-12-22] MEDS: QUEtiapine FUMARATE 100 MG TABLET (FP) PO SCH (21:11)
[2018-12-22] MEDS: LIDOCAINE PATCH REMOVAL MC SCH (21:11)
[2018-12-23] MEDS: SERTRALINE HCL 50 MG TABLET (FP) PO SCH (09:59)
[2018-12-23] MEDS: PRENATAL VITAMINS W/ FOLIC ACID TABLET (FP) PO SCH (09:59)
[2018-12-23] MEDS: LIDOCAINE 5% TOPICAL PATCH TP SCH (09:59)
[2018-12-23] MEDS: PANTOPRAZOLE 40 MG TABLET (FP) PO SCH (10:00)
[2018-12-23] MEDS: THIAMINE HCL 100 MG TABLET (FP) PO SCH (10:00)
[2018-12-23] MEDS: hydrOXYzine PAMOATE 50 MG CAPSULE (FP) PO PRN ×2 (10:00→21:23)
[2018-12-23] MEDS: NICOTINE 21 MG/24 HOURS TOPICAL PATCH TD SCH (10:00)
[2018-12-23] MEDS: cloNIDine HCL 0.1 MG TABLET PO SCH ×2 (10:00→21:23)
[2018-12-23] MEDS: NICOTINE POLACRILEX 4 MG GUM BUC PRN ×3 (12:54→21:24)
[2018-12-23] MEDS: QUEtiapine FUMARATE 100 MG TABLET (FP) PO SCH (21:23)
[2018-12-23] MEDS: MELATONIN 5 MG TABLETS PO PRN (21:23)
[2018-12-23] MEDS: LIDOCAINE PATCH REMOVAL MC SCH (21:24)
[2018-12-24] MEDS: PANTOPRAZOLE 40 MG TABLET (FP) PO SCH (09:53)
[2018-12-24] MEDS: cloNIDine HCL 0.1 MG TABLET PO SCH ×2 (09:53→22:04)
[2018-12-24] MEDS: NICOTINE 21 MG/24 HOURS TOPICAL PATCH TD SCH (09:53)
[2018-12-24] MEDS: LIDOCAINE 5% TOPICAL PATCH TP SCH (09:54)
[2018-12-24] MEDS: PRENATAL VITAMINS W/ FOLIC ACID TABLET (FP) PO SCH (09:54)
[2018-12-24] MEDS: THIAMINE HCL 100 MG TABLET (FP) PO SCH (09:54)
[2018-12-24] MEDS: SERTRALINE HCL 50 MG TABLET (FP) PO SCH (09:54)
[2018-12-24] MEDS: ACETAMINOPHEN 325 MG TABLET (FP) PO PRN ×2 (09:55→15:50)
[2018-12-24] MEDS: NICOTINE POLACRILEX 4 MG GUM BUC PRN ×2 (15:52→22:05)
[2018-12-24] MEDS: MELATONIN 5 MG TABLETS PO PRN (22:04)
[2018-12-24] MEDS: hydrOXYzine PAMOATE 50 MG CAPSULE (FP) PO PRN (22:04)
[2018-12-24] MEDS: QUEtiapine FUMARATE 100 MG TABLET (FP) PO SCH (22:04)
[2018-12-24] MEDS: LIDOCAINE PATCH REMOVAL MC SCH (22:06)
[2018-12-25] MEDS: NICOTINE POLACRILEX 4 MG GUM BUC PRN ×5 (06:56→21:21)
[2018-12-25] MEDS: hydrOXYzine PAMOATE 50 MG CAPSULE (FP) PO PRN ×2 (10:03→16:37)
[2018-12-25] MEDS: SERTRALINE HCL 50 MG TABLET (FP) PO SCH (10:03)
[2018-12-25] MEDS: PRENATAL VITAMINS W/ FOLIC ACID TABLET (FP) PO SCH (10:03)
[2018-12-25] MEDS: cloNIDine HCL 0.1 MG TABLET PO SCH ×2 (10:03→21:20)
[2018-12-25] MEDS: LIDOCAINE 5% TOPICAL PATCH TP SCH (10:03)
[2018-12-25] MEDS: PANTOPRAZOLE 40 MG TABLET (FP) PO SCH (10:04)
[2018-12-25] MEDS: THIAMINE HCL 100 MG TABLET (FP) PO SCH (10:04)
[2018-12-25] MEDS: NICOTINE 21 MG/24 HOURS TOPICAL PATCH TD SCH (10:05)
[2018-12-25] MEDS: QUEtiapine FUMARATE 100 MG TABLET (FP) PO SCH (21:19)
[2018-12-25] MEDS: LIDOCAINE PATCH REMOVAL MC SCH (21:19)
[2018-12-26] MEDS: SERTRALINE HCL 50 MG TABLET (FP) PO SCH (10:05)
[2018-12-26] MEDS: THIAMINE HCL 100 MG TABLET (FP) PO SCH (10:05)
[2018-12-26] MEDS: cloNIDine HCL 0.1 MG TABLET PO SCH ×2 (10:05→21:19)
[2018-12-26] MEDS: PRENATAL VITAMINS W/ FOLIC ACID TABLET (FP) PO SCH (10:05)
[2018-12-26] MEDS: LIDOCAINE 5% TOPICAL PATCH TP SCH (10:06)
[2018-12-26] MEDS: NICOTINE 21 MG/24 HOURS TOPICAL PATCH TD SCH (10:06)
[2018-12-26] MEDS: PANTOPRAZOLE 40 MG TABLET (FP) PO SCH (10:06)
[2018-12-26] MEDS: NICOTINE POLACRILEX 4 MG GUM BUC PRN ×4 (10:08→21:22)
[2018-12-26] MEDS: QUEtiapine FUMARATE 100 MG TABLET (FP) PO SCH (21:19)
[2018-12-26] MEDS: LIDOCAINE PATCH REMOVAL MC SCH (21:19)
[2018-12-27] MEDS: NICOTINE POLACRILEX 4 MG GUM BUC PRN ×5 (06:51→21:39)
[2018-12-27] MEDS: SERTRALINE HCL 50 MG TABLET (FP) PO SCH (09:51)
[2018-12-27] MEDS: cloNIDine HCL 0.1 MG TABLET PO SCH ×2 (09:51→21:38)
[2018-12-27] MEDS: PRENATAL VITAMINS W/ FOLIC ACID TABLET (FP) PO SCH (09:51)
[2018-12-27] MEDS: THIAMINE HCL 100 MG TABLET (FP) PO SCH (09:51)
[2018-12-27] MEDS: LIDOCAINE 5% TOPICAL PATCH TP SCH (09:51)
[2018-12-27] MEDS: PANTOPRAZOLE 40 MG TABLET (FP) PO SCH (09:51)
[2018-12-27] MEDS: NICOTINE 21 MG/24 HOURS TOPICAL PATCH TD SCH (09:51)
[2018-12-27] MEDS: hydrOXYzine PAMOATE 50 MG CAPSULE (FP) PO PRN ×2 (13:26→21:38)
[2018-12-27] MEDS: IBUPROFEN 400 MG TABLET (FP) PO PRN (17:50)
[2018-12-27] MEDS: MELATONIN 5 MG TABLETS PO PRN (21:38)
[2018-12-27] MEDS: QUEtiapine FUMARATE 100 MG TABLET (FP) PO SCH (21:38)
[2018-12-27] MEDS: LIDOCAINE PATCH REMOVAL MC SCH (21:39)
[2018-12-28] MEDS: NICOTINE POLACRILEX 4 MG GUM BUC PRN ×7 (06:17→20:42)
[2018-12-28] MEDS: THIAMINE HCL 100 MG TABLET (FP) PO SCH (09:48)
[2018-12-28] MEDS: NICOTINE 21 MG/24 HOURS TOPICAL PATCH TD SCH (09:48)
[2018-12-28] MEDS: PANTOPRAZOLE 40 MG TABLET (FP) PO SCH (09:48)
[2018-12-28] MEDS: LIDOCAINE 5% TOPICAL PATCH TP SCH (09:48)
[2018-12-28] MEDS: cloNIDine HCL 0.1 MG TABLET PO SCH ×2 (09:48→21:28)
[2018-12-28] MEDS: PRENATAL VITAMINS W/ FOLIC ACID TABLET (FP) PO SCH (09:48)
[2018-12-28] MEDS: SERTRALINE HCL 50 MG TABLET (FP) PO SCH (09:48)
[2018-12-28] MEDS: ACETAMINOPHEN 325 MG TABLET (FP) PO PRN (20:40)
[2018-12-28] MEDS: LIDOCAINE PATCH REMOVAL MC SCH (21:28)
[2018-12-28] MEDS: MELATONIN 5 MG TABLETS PO PRN (21:28)
[2018-12-28] MEDS: hydrOXYzine PAMOATE 50 MG CAPSULE (FP) PO PRN (21:28)
[2018-12-28] MEDS: QUEtiapine FUMARATE 100 MG TABLET (FP) PO SCH (22:03)
[2018-12-29] MEDS: NICOTINE POLACRILEX 4 MG GUM BUC PRN ×5 (06:30→21:22)
[2018-12-29] MEDS: PRENATAL VITAMINS W/ FOLIC ACID TABLET (FP) PO SCH (09:50)
[2018-12-29] MEDS: PANTOPRAZOLE 40 MG TABLET (FP) PO SCH (09:50)
[2018-12-29] MEDS: SERTRALINE HCL 50 MG TABLET (FP) PO SCH (09:50)
[2018-12-29] MEDS: THIAMINE HCL 100 MG TABLET (FP) PO SCH (09:50)
[2018-12-29] MEDS: cloNIDine HCL 0.1 MG TABLET PO SCH ×2 (09:50→21:21)
[2018-12-29] MEDS: LIDOCAINE 5% TOPICAL PATCH TP SCH (09:51)
[2018-12-29] MEDS: NICOTINE 21 MG/24 HOURS TOPICAL PATCH TD SCH (09:51)
[2018-12-29] MEDS: hydrOXYzine PAMOATE 50 MG CAPSULE (FP) PO PRN (14:56)
[2018-12-29] MEDS: IBUPROFEN 400 MG TABLET (FP) PO PRN (16:30)
[2018-12-29] MEDS: QUEtiapine FUMARATE 100 MG TABLET (FP) PO SCH (21:21)
[2018-12-29] MEDS: MELATONIN 5 MG TABLETS PO PRN (21:21)
[2018-12-29] MEDS: LIDOCAINE PATCH REMOVAL MC SCH (21:21)
[2018-12-30] MEDS: NICOTINE POLACRILEX 4 MG GUM BUC PRN ×6 (06:56→21:10)
[2018-12-30] MEDS: THIAMINE HCL 100 MG TABLET (FP) PO SCH (09:32)
[2018-12-30] MEDS: LIDOCAINE 5% TOPICAL PATCH TP SCH (09:32)
[2018-12-30] MEDS: SERTRALINE HCL 50 MG TABLET (FP) PO SCH (09:32)
[2018-12-30] MEDS: NICOTINE 21 MG/24 HOURS TOPICAL PATCH TD SCH (09:32)
[2018-12-30] MEDS: PANTOPRAZOLE 40 MG TABLET (FP) PO SCH (09:32)
[2018-12-30] MEDS: cloNIDine HCL 0.1 MG TABLET PO SCH ×2 (09:32→21:09)
[2018-12-30] MEDS: PRENATAL VITAMINS W/ FOLIC ACID TABLET (FP) PO SCH (09:32)
[2018-12-30] MEDS: hydrOXYzine PAMOATE 50 MG CAPSULE (FP) PO PRN (18:59)
[2018-12-30] MEDS: QUEtiapine FUMARATE 100 MG TABLET (FP) PO SCH (21:08)
[2018-12-30] MEDS: LIDOCAINE PATCH REMOVAL MC SCH (21:09)
[2018-12-31] MEDS: NICOTINE POLACRILEX 4 MG GUM BUC PRN ×5 (06:25→21:12)
[2018-12-31] MEDS: SERTRALINE HCL 50 MG TABLET (FP) PO SCH (09:49)
[2018-12-31] MEDS: THIAMINE HCL 100 MG TABLET (FP) PO SCH (09:49)
[2018-12-31] MEDS: cloNIDine HCL 0.1 MG TABLET PO SCH ×2 (09:49→21:11)
[2018-12-31] MEDS: PANTOPRAZOLE 40 MG TABLET (FP) PO SCH (09:49)
[2018-12-31] MEDS: NICOTINE 21 MG/24 HOURS TOPICAL PATCH TD SCH (09:49)
[2018-12-31] MEDS: LIDOCAINE 5% TOPICAL PATCH TP SCH (09:49)
[2018-12-31] MEDS: PRENATAL VITAMINS W/ FOLIC ACID TABLET (FP) PO SCH (09:49)
[2018-12-31] MEDS: hydrOXYzine PAMOATE 50 MG CAPSULE (FP) PO PRN (15:58)
[2018-12-31] MEDS: ACETAMINOPHEN 325 MG TABLET (FP) PO PRN (20:07)
[2018-12-31] MEDS: QUEtiapine FUMARATE 100 MG TABLET (FP) PO SCH (21:11)
[2018-12-31] MEDS: LIDOCAINE PATCH REMOVAL MC SCH (21:11)
[2019-01-01] MEDS: NICOTINE POLACRILEX 4 MG GUM BUC PRN ×6 (06:14→21:13)
[2019-01-01] MEDS: PRENATAL VITAMINS W/ FOLIC ACID TABLET (FP) PO SCH (10:35)
[2019-01-01] MEDS: SERTRALINE HCL 50 MG TABLET (FP) PO SCH (10:35)
[2019-01-01] MEDS: cloNIDine HCL 0.1 MG TABLET PO SCH ×2 (10:35→21:11)
[2019-01-01] MEDS: THIAMINE HCL 100 MG TABLET (FP) PO SCH (10:35)
[2019-01-01] MEDS: LIDOCAINE 5% TOPICAL PATCH TP SCH (10:36)
[2019-01-01] MEDS: PANTOPRAZOLE 40 MG TABLET (FP) PO SCH (10:36)
[2019-01-01] MEDS: NICOTINE 21 MG/24 HOURS TOPICAL PATCH TD SCH (10:37)
[2019-01-01] MEDS: MELATONIN 5 MG TABLETS PO PRN (21:11)
[2019-01-01] MEDS: hydrOXYzine PAMOATE 50 MG CAPSULE (FP) PO PRN (21:11)
[2019-01-01] MEDS: QUEtiapine FUMARATE 100 MG TABLET (FP) PO SCH (21:11)
[2019-01-01] MEDS: LIDOCAINE PATCH REMOVAL MC SCH (21:12)
[2019-01-02] MEDS: NICOTINE POLACRILEX 4 MG GUM BUC PRN ×6 (07:14→21:18)
[2019-01-02] MEDS: PRENATAL VITAMINS W/ FOLIC ACID TABLET (FP) PO SCH (09:54)
[2019-01-02] MEDS: PANTOPRAZOLE 40 MG TABLET (FP) PO SCH (09:54)
[2019-01-02] MEDS: SERTRALINE HCL 50 MG TABLET (FP) PO SCH (09:54)
[2019-01-02] MEDS: cloNIDine HCL 0.1 MG TABLET PO SCH ×2 (09:54→21:18)
[2019-01-02] MEDS: THIAMINE HCL 100 MG TABLET (FP) PO SCH (09:54)
[2019-01-02] MEDS: LIDOCAINE 5% TOPICAL PATCH TP SCH (09:55)
[2019-01-02] MEDS: NICOTINE 21 MG/24 HOURS TOPICAL PATCH TD SCH (09:55)
[2019-01-02] MEDS: LIDOCAINE PATCH REMOVAL MC SCH (21:18)
[2019-01-02] MEDS: QUEtiapine FUMARATE 100 MG TABLET (FP) PO SCH (21:18)
[2019-01-02] MEDS: MELATONIN 5 MG TABLETS PO PRN (21:18)
[2019-01-03] MEDS: NICOTINE POLACRILEX 4 MG GUM BUC PRN ×6 (06:06→21:22)
[2019-01-03] MEDS: SERTRALINE HCL 50 MG TABLET (FP) PO SCH (10:07)
[2019-01-03] MEDS: THIAMINE HCL 100 MG TABLET (FP) PO SCH (10:07)
[2019-01-03] MEDS: PANTOPRAZOLE 40 MG TABLET (FP) PO SCH (10:07)
[2019-01-03] MEDS: PRENATAL VITAMINS W/ FOLIC ACID TABLET (FP) PO SCH (10:07)
[2019-01-03] MEDS: cloNIDine HCL 0.1 MG TABLET PO SCH ×2 (10:07→21:21)
[2019-01-03] MEDS: NICOTINE 21 MG/24 HOURS TOPICAL PATCH TD SCH (10:09)
[2019-01-03] MEDS: LIDOCAINE 5% TOPICAL PATCH TP SCH (10:09)
[2019-01-03] MEDS: hydrOXYzine PAMOATE 50 MG CAPSULE (FP) PO PRN (21:21)
[2019-01-03] MEDS: LIDOCAINE PATCH REMOVAL MC SCH (21:21)
[2019-01-03] MEDS: QUEtiapine FUMARATE 100 MG TABLET (FP) PO SCH (21:21)
[2019-01-04] MEDS: cloNIDine HCL 0.1 MG TABLET PO SCH ×2 (10:06→21:49)
[2019-01-04] MEDS: LIDOCAINE 5% TOPICAL PATCH TP SCH (10:06)
[2019-01-04] MEDS: PRENATAL VITAMINS W/ FOLIC ACID TABLET (FP) PO SCH (10:07)
[2019-01-04] MEDS: SERTRALINE HCL 50 MG TABLET (FP) PO SCH (10:07)
[2019-01-04] MEDS: NICOTINE 21 MG/24 HOURS TOPICAL PATCH TD SCH (10:07)
[2019-01-04] MEDS: PANTOPRAZOLE 40 MG TABLET (FP) PO SCH (10:07)
[2019-01-04] MEDS: NICOTINE POLACRILEX 4 MG GUM BUC PRN ×4 (10:08→21:50)
[2019-01-04] MEDS: THIAMINE HCL 100 MG TABLET (FP) PO SCH (10:08)
[2019-01-04] MEDS: hydrOXYzine PAMOATE 50 MG CAPSULE (FP) PO PRN (13:55)
[2019-01-04] MEDS: MELATONIN 5 MG TABLETS PO PRN (21:49)
[2019-01-04] MEDS: LIDOCAINE PATCH REMOVAL MC SCH (21:50)
[2019-01-04] MEDS: QUEtiapine FUMARATE 100 MG TABLET (FP) PO SCH (21:50)
[2019-01-05] MEDS: SERTRALINE HCL 50 MG TABLET (FP) PO SCH (10:33)
[2019-01-05] MEDS: PRENATAL VITAMINS W/ FOLIC ACID TABLET (FP) PO SCH (10:33)
[2019-01-05] MEDS: LIDOCAINE 5% TOPICAL PATCH TP SCH (10:33)
[2019-01-05] MEDS: MAG HYDROX/AL HYDROX/SIMETH 30 ML UNIT-DOSE CUP PO PRN (10:33)
[2019-01-05] MEDS: THIAMINE HCL 100 MG TABLET (FP) PO SCH (10:33)
[2019-01-05] MEDS: cloNIDine HCL 0.1 MG TABLET PO SCH ×2 (10:33→21:19)
[2019-01-05] MEDS: NICOTINE 21 MG/24 HOURS TOPICAL PATCH TD SCH (10:33)
[2019-01-05] MEDS: PANTOPRAZOLE 40 MG TABLET (FP) PO SCH (10:33)
[2019-01-05] MEDS: NICOTINE POLACRILEX 4 MG GUM BUC PRN ×3 (12:28→21:20)
[2019-01-05] MEDS: hydrOXYzine PAMOATE 50 MG CAPSULE (FP) PO PRN (21:19)
[2019-01-05] MEDS: QUEtiapine FUMARATE 100 MG TABLET (FP) PO SCH (21:19)
[2019-01-05] MEDS: LIDOCAINE PATCH REMOVAL MC SCH (22:38)
[2019-01-06] MEDS: NICOTINE POLACRILEX 4 MG GUM BUC PRN ×5 (06:08→21:38)
[2019-01-06] MEDS: cloNIDine HCL 0.1 MG TABLET PO SCH ×2 (09:50→21:38)
[2019-01-06] MEDS: SERTRALINE HCL 50 MG TABLET (FP) PO SCH (09:50)
[2019-01-06] MEDS: THIAMINE HCL 100 MG TABLET (FP) PO SCH (09:50)
[2019-01-06] MEDS: PRENATAL VITAMINS W/ FOLIC ACID TABLET (FP) PO SCH (09:50)
[2019-01-06] MEDS: LIDOCAINE 5% TOPICAL PATCH TP SCH (09:50)
[2019-01-06] MEDS: PANTOPRAZOLE 40 MG TABLET (FP) PO SCH (09:50)
[2019-01-06] MEDS: NICOTINE 21 MG/24 HOURS TOPICAL PATCH TD SCH (09:52)
[2019-01-06] MEDS: hydrOXYzine PAMOATE 50 MG CAPSULE (FP) PO PRN ×2 (13:54→21:38)
[2019-01-06] MEDS: QUEtiapine FUMARATE 100 MG TABLET (FP) PO SCH (21:38)
[2019-01-06] MEDS: LIDOCAINE PATCH REMOVAL MC SCH (21:38)
[2019-01-07] MEDS: NICOTINE POLACRILEX 4 MG GUM BUC PRN ×6 (06:18→19:55)
[2019-01-07] MEDS: MAG HYDROX/AL HYDROX/SIMETH 30 ML UNIT-DOSE CUP PO PRN (07:04)
[2019-01-07] MEDS: PRENATAL VITAMINS W/ FOLIC ACID TABLET (FP) PO SCH (10:16)
[2019-01-07] MEDS: PANTOPRAZOLE 40 MG TABLET (FP) PO SCH (10:16)
[2019-01-07] MEDS: cloNIDine HCL 0.1 MG TABLET PO SCH ×2 (10:16→21:45)
[2019-01-07] MEDS: LIDOCAINE 5% TOPICAL PATCH TP SCH (10:16)
[2019-01-07] MEDS: NICOTINE 21 MG/24 HOURS TOPICAL PATCH TD SCH (10:16)
[2019-01-07] MEDS: THIAMINE HCL 100 MG TABLET (FP) PO SCH (10:17)
[2019-01-07] MEDS: SERTRALINE HCL 50 MG TABLET (FP) PO SCH (10:17)
[2019-01-07] MEDS: QUEtiapine FUMARATE 100 MG TABLET (FP) PO SCH (21:45)
[2019-01-07] MEDS: hydrOXYzine PAMOATE 50 MG CAPSULE (FP) PO PRN (21:45)
[2019-01-07] MEDS: MELATONIN 5 MG TABLETS PO PRN (21:45)
[2019-01-07] MEDS: LIDOCAINE PATCH REMOVAL MC SCH (21:46)
[2019-01-08] MEDS: NICOTINE POLACRILEX 4 MG GUM BUC PRN ×3 (06:42→21:29)
[2019-01-08] MEDS ORDERED: PT OWN MED DRAWER 7, Y5N ONE (09:00)
[2019-01-08] MEDS: PANTOPRAZOLE 40 MG TABLET (FP) PO SCH (10:04)
[2019-01-08] MEDS: PRENATAL VITAMINS W/ FOLIC ACID TABLET (FP) PO SCH (10:04)
[2019-01-08] MEDS: cloNIDine HCL 0.1 MG TABLET PO SCH ×2 (10:04→21:28)
[2019-01-08] MEDS: THIAMINE HCL 100 MG TABLET (FP) PO SCH (10:04)
[2019-01-08] MEDS: SERTRALINE HCL 50 MG TABLET (FP) PO SCH (10:04)
[2019-01-08] MEDS: LIDOCAINE 5% TOPICAL PATCH TP SCH (10:05)
[2019-01-08] MEDS: NICOTINE 21 MG/24 HOURS TOPICAL PATCH TD SCH (10:05)
[2019-01-08] MEDS: hydrOXYzine PAMOATE 50 MG CAPSULE (FP) PO PRN ×2 (14:09→21:28)
[2019-01-08] MEDS: IBUPROFEN 400 MG TABLET (FP) PO PRN (17:07)
[2019-01-08] MEDS: QUEtiapine FUMARATE 100 MG TABLET (FP) PO SCH (21:28)
[2019-01-08] MEDS: MELATONIN 5 MG TABLETS PO PRN (21:28)
[2019-01-08] MEDS: LIDOCAINE PATCH REMOVAL MC SCH (21:28)
[2019-01-09] MEDS: hydrOXYzine PAMOATE 50 MG CAPSULE (FP) PO PRN ×2 (09:58→16:53)
[2019-01-09] MEDS: THIAMINE HCL 100 MG TABLET (FP) PO SCH (09:58)
[2019-01-09] MEDS: PANTOPRAZOLE 40 MG TABLET (FP) PO SCH (09:59)
[2019-01-09] MEDS: SERTRALINE HCL 50 MG TABLET (FP) PO SCH (09:59)
[2019-01-09] MEDS: cloNIDine HCL 0.1 MG TABLET PO SCH ×2 (09:59→21:29)
[2019-01-09] MEDS: NICOTINE 21 MG/24 HOURS TOPICAL PATCH TD SCH (09:59)
[2019-01-09] MEDS: PRENATAL VITAMINS W/ FOLIC ACID TABLET (FP) PO SCH (09:59)
[2019-01-09] MEDS: LIDOCAINE 5% TOPICAL PATCH TP SCH (09:59)
[2019-01-09] MEDS: NICOTINE POLACRILEX 4 MG GUM BUC PRN ×3 (12:54→21:29)
[2019-01-09] MEDS: LIDOCAINE PATCH REMOVAL MC SCH (21:29)
[2019-01-09] MEDS: QUEtiapine FUMARATE 100 MG TABLET (FP) PO SCH (21:29)
[2019-01-10] MEDS: NICOTINE POLACRILEX 4 MG GUM BUC PRN ×6 (05:57→23:36)
[2019-01-10] MEDS: PRENATAL VITAMINS W/ FOLIC ACID TABLET (FP) PO SCH (09:28)
[2019-01-10] MEDS: THIAMINE HCL 100 MG TABLET (FP) PO SCH (09:28)
[2019-01-10] MEDS: cloNIDine HCL 0.1 MG TABLET PO SCH ×2 (09:28→21:25)
[2019-01-10] MEDS: NICOTINE 21 MG/24 HOURS TOPICAL PATCH TD SCH (09:28)
[2019-01-10] MEDS: hydrOXYzine PAMOATE 50 MG CAPSULE (FP) PO PRN (09:28)
[2019-01-10] MEDS: SERTRALINE HCL 50 MG TABLET (FP) PO SCH (09:28)
[2019-01-10] MEDS: LIDOCAINE 5% TOPICAL PATCH TP SCH (09:28)
[2019-01-10] MEDS: PANTOPRAZOLE 40 MG TABLET (FP) PO SCH (09:28)
[2019-01-10] MEDS ORDERED: P-EPHED 60MG/TRIPROLIDI 2.5MG TABLET PO PRN (09:56)
--- NOTE | 2019-01-10 15:48 | PN ---
S Progress Note (SOAP) Subjective: Client reports blood in stool, described as a bright red streak. States it has happened before when the stool was hard and difficult to pass. Objective: 01/10/19 15:45 Abd soft, non-tender, non-distended, +bowel sounds all 4 quadrants, refused rectal exam. Assessment: 01/10/19 15: Constipation Hemorrhoid Plan: stool softener ordered, advised client to increase fluids. Also instructed patient to allow the RN to see the stool if there is blood the next time he has a bowel movement.
[2019-01-10] MEDS: IBUPROFEN 400 MG TABLET (FP) PO PRN (16:40)
[2019-01-10] MEDS: DOCUSATE SODIUM 100 MG CAPSULE (FP) PO SCH (21:24)
[2019-01-10] MEDS: QUEtiapine FUMARATE 100 MG TABLET (FP) PO SCH (21:25)
[2019-01-10] MEDS: MELATONIN 5 MG TABLETS PO PRN (21:25)
[2019-01-10] MEDS: LIDOCAINE PATCH REMOVAL MC SCH (21:25)
[2019-01-11] MEDS: NICOTINE POLACRILEX 4 MG GUM BUC PRN ×3 (06:27→19:38)
[2019-01-11] MEDS: cloNIDine HCL 0.1 MG TABLET PO SCH ×2 (10:08→21:22)
[2019-01-11] MEDS: PANTOPRAZOLE 40 MG TABLET (FP) PO SCH (10:08)
[2019-01-11] MEDS: PRENATAL VITAMINS W/ FOLIC ACID TABLET (FP) PO SCH (10:08)
[2019-01-11] MEDS: THIAMINE HCL 100 MG TABLET (FP) PO SCH (10:08)
[2019-01-11] MEDS: SERTRALINE HCL 50 MG TABLET (FP) PO SCH (10:08)
[2019-01-11] MEDS: LIDOCAINE 5% TOPICAL PATCH TP SCH (10:11)
[2019-01-11] MEDS: NICOTINE 21 MG/24 HOURS TOPICAL PATCH TD SCH (10:12)
[2019-01-11] MEDS: hydrOXYzine PAMOATE 50 MG CAPSULE (FP) PO PRN ×2 (11:56→21:23)
[2019-01-11] MEDS: QUEtiapine FUMARATE 100 MG TABLET (FP) PO SCH (21:22)
[2019-01-11] MEDS: MELATONIN 5 MG TABLETS PO PRN (21:22)
[2019-01-11] MEDS: LIDOCAINE PATCH REMOVAL MC SCH (21:23)
[2019-01-11] MEDS: DOCUSATE SODIUM 100 MG CAPSULE (FP) PO SCH (21:24)
[2019-01-12] MEDS: NICOTINE POLACRILEX 4 MG GUM BUC PRN ×5 (06:07→21:28)
--- NOTE | 2019-01-12 06:31 | PN ---
S Progress Note Note: Patient is scheduled for discharge today. Scripts for 30 days supply of medications(Zoloft, Seroquel) are electronicaly transmitted to [facility] at [address] [place] [address]
[2019-01-12] MEDS: PANTOPRAZOLE 40 MG TABLET (FP) PO SCH (10:03)
[2019-01-12] MEDS: NICOTINE 21 MG/24 HOURS TOPICAL PATCH TD SCH (10:03)
[2019-01-12] MEDS: THIAMINE HCL 100 MG TABLET (FP) PO SCH (10:03)
[2019-01-12] MEDS: cloNIDine HCL 0.1 MG TABLET PO SCH ×2 (10:03→21:25)
[2019-01-12] MEDS: SERTRALINE HCL 50 MG TABLET (FP) PO SCH (10:03)
[2019-01-12] MEDS: PRENATAL VITAMINS W/ FOLIC ACID TABLET (FP) PO SCH (10:03)
[2019-01-12] MEDS: LIDOCAINE 5% TOPICAL PATCH TP SCH (10:03)
[2019-01-12] MEDS: hydrOXYzine PAMOATE 50 MG CAPSULE (FP) PO PRN ×2 (13:28→21:25)
[2019-01-12] MEDS ORDERED: QUEtiapine FUMARATE 50 MG TABLET ONE (20:02)
[2019-01-12] MEDS: DOCUSATE SODIUM 100 MG CAPSULE (FP) PO SCH (21:26)
[2019-01-12] MEDS: MELATONIN 5 MG TABLETS PO PRN (21:26)
[2019-01-12] MEDS: QUEtiapine FUMARATE 100 MG TABLET (FP) PO SCH (21:27)
[2019-01-12] MEDS: LIDOCAINE PATCH REMOVAL MC SCH (21:28)
[2019-01-13] MEDS: NICOTINE POLACRILEX 4 MG GUM BUC PRN ×6 (06:18→23:36)
[2019-01-13] MEDS: IBUPROFEN 400 MG TABLET (FP) PO PRN ×2 (06:28→19:10)
[2019-01-13] MEDS: THIAMINE HCL 100 MG TABLET (FP) PO SCH (09:31)
[2019-01-13] MEDS: PANTOPRAZOLE 40 MG TABLET (FP) PO SCH (09:31)
[2019-01-13] MEDS: PRENATAL VITAMINS W/ FOLIC ACID TABLET (FP) PO SCH (09:31)
[2019-01-13] MEDS: cloNIDine HCL 0.1 MG TABLET PO SCH ×2 (09:31→21:23)
[2019-01-13] MEDS: NICOTINE 21 MG/24 HOURS TOPICAL PATCH TD SCH (09:31)
[2019-01-13] MEDS: SERTRALINE HCL 50 MG TABLET (FP) PO SCH (09:31)
[2019-01-13] MEDS: LIDOCAINE 5% TOPICAL PATCH TP SCH (09:32)
[2019-01-13] MEDS: hydrOXYzine PAMOATE 50 MG CAPSULE (FP) PO PRN (16:35)
[2019-01-13] MEDS: DOCUSATE SODIUM 100 MG CAPSULE (FP) PO SCH (21:23)
[2019-01-13] MEDS: QUEtiapine FUMARATE 100 MG TABLET (FP) PO SCH (21:23)
[2019-01-13] MEDS: LIDOCAINE PATCH REMOVAL MC SCH (21:23)
[2019-01-14] MEDS: PANTOPRAZOLE 40 MG TABLET (FP) PO SCH (09:43)
[2019-01-14] MEDS: NICOTINE 21 MG/24 HOURS TOPICAL PATCH TD SCH (09:43)
[2019-01-14] MEDS: LIDOCAINE 5% TOPICAL PATCH TP SCH (09:43)
[2019-01-14] MEDS: PRENATAL VITAMINS W/ FOLIC ACID TABLET (FP) PO SCH (09:43)
[2019-01-14] MEDS: SERTRALINE HCL 50 MG TABLET (FP) PO SCH (09:43)
[2019-01-14] MEDS: cloNIDine HCL 0.1 MG TABLET PO SCH ×2 (09:43→21:27)
[2019-01-14] MEDS: THIAMINE HCL 100 MG TABLET (FP) PO SCH (09:43)
[2019-01-14] MEDS: NICOTINE POLACRILEX 4 MG GUM BUC PRN ×5 (09:44→23:56)
[2019-01-14] MEDS: hydrOXYzine PAMOATE 50 MG CAPSULE (FP) PO PRN ×2 (13:38→19:30)
[2019-01-14] MEDS ORDERED: QUEtiapine FUMARATE 50 MG TABLET ONE (19:54)
[2019-01-14] MEDS: DOCUSATE SODIUM 100 MG CAPSULE (FP) PO SCH (21:27)
[2019-01-14] MEDS: QUEtiapine FUMARATE 100 MG TABLET (FP) PO SCH (21:27)
[2019-01-14] MEDS: LIDOCAINE PATCH REMOVAL MC SCH (21:27)
[2019-01-14] MEDS: IBUPROFEN 400 MG TABLET (FP) PO PRN (22:17)
[2019-01-15] MEDS: NICOTINE POLACRILEX 4 MG GUM BUC PRN ×3 (06:11→12:33)
[2019-01-15 07:03] VITALS: TEMP 97.6
[2019-01-15] MEDS: cloNIDine HCL 0.1 MG TABLET PO SCH (10:02)
[2019-01-15] MEDS: NICOTINE 21 MG/24 HOURS TOPICAL PATCH TD SCH (10:02)
[2019-01-15] MEDS: THIAMINE HCL 100 MG TABLET (FP) PO SCH (10:02)
[2019-01-15] MEDS: PRENATAL VITAMINS W/ FOLIC ACID TABLET (FP) PO SCH (10:02)
[2019-01-15] MEDS: SERTRALINE HCL 50 MG TABLET (FP) PO SCH (10:02)
[2019-01-15] MEDS: PANTOPRAZOLE 40 MG TABLET (FP) PO SCH (10:02)
[2019-01-15] MEDS: LIDOCAINE 5% TOPICAL PATCH TP SCH (10:03)
[2019-01-15 10:22] VITALS: BP 132/67; PULSE 88
--- NOTE | 2019-01-15 12:17 | PN ---
[facility] Progress Note Note: REHAB DISCHARGE NOTE: PATIENT COMPLETED REHAB TODAY AND REPORTS ACCOMPLISHING ALL REHAB GOALS. PATIENT IS MEDICALLY STABLE AND DENIES SI/HI. AFTERCARE ARRANGED FOR A NEW BEGINNING SOBER HOUSE IN [facility]. PATIENT HAS APPT SCHEDULED TODAY AFTER 12 NOON. PATIENT ENCOURAGED TO ATTEND GROUP MEETINGS AND TO COMPLETE RN STARS TREATMENT TO PREVENT RELAPSE. Vital Signs Temperature 97.6 F 01/15/19 07:02 Pulse Rate 88 01/15/19 09:30 Respiratory Rate 18 01/15/19 09:30 Blood Pressure 132/67 01/15/19 09:30 O2 Sat by Pulse Oximetry (%) Laboratory Tests 12/13/18 12/14/18 12/14/18 14:50 06:00 06:00 WBC 8.7 RBC 4.95 Hgb 15.0 Hct 43.3 MCV 87.4 MCH 30.3 MCHC 34.7 RDW 13.9 Plt Count 180 MPV 9.7 D Sodium 139 Potassium 3.8 Chloride 108 H Carbon Dioxide 21 Anion Gap 10 BUN 17 Creatinine 1.1 Creat Clearance w eGFR > 60 Random Glucose 104 Calcium 9.3 Total Bilirubin 0.8 AST 24 ALT 34 Alkaline Phosphatase 100 Total Protein 8.1 Albumin 4.4 RPR Titer HIV 1&2 Antibody Screen Negative HIV P24 Antigen Negative 12/14/18 06:00 WBC RBC Hgb Hct MCV MCH MCHC RDW Plt Count MPV Sodium Potassium Chloride Carbon Dioxide Anion Gap BUN Creatinine Creat Clearance w eGFR Random Glucose Calcium Total Bilirubin AST ALT Alkaline Phosphatase Total Protein Albumin RPR Titer Nonreactive HIV 1&2 Antibody Screen HIV P24 Antigen Ambulatory Orders Pantoprazole Sodium [Protonix -] 40 mg PO DAILY #30 tablet.ec 07/11/16 Quetiapine Fumarate [Seroquel] 100 mg PO HS #30 tablet 01/12/19 Sertraline HCl [Zoloft -] 50 mg PO DAILY #30 tablet 01/12/19
[2019-01-15] MEDS: hydrOXYzine PAMOATE 50 MG CAPSULE (FP) PO PRN (13:19)
== END 2019-01-15 13:40 | disposition home or self-care (01) | DRG 895 ==
LOC: YASAS 11:44 → Y3N 15:18 → Y3W 12-16 14:03
PROVIDERS: ADMIT Surgery; ATTEND Psychiatry & Neurology Psychiatry
PROC: HZ2ZZZZ Detoxification Services for Substance Abuse Treatment (ICD-10-PCS; principal; 2018-12-13)
PROC: HZ42ZZZ Group Counseling for Substance Abuse Treatment, Cognitive-Behavioral (ICD-10-PCS; 2018-12-16)
DX: F13.230 Sedative, hypnotic or anxiolytic dependence with withdrawal, uncomplicated (principal); F17.210 Nicotine dependence, cigarettes, uncomplicated; F41.9 Anxiety disorder, unspecified; F25.9 Schizoaffective disorder, unspecified; F32.9 Major depressive disorder, single episode, unspecified; F43.10 Post-traumatic stress disorder, unspecified; F41.0 Panic disorder [episodic paroxysmal anxiety]; I10 Essential (primary) hypertension; K59.00 Constipation, unspecified; K64.8 Other hemorrhoids; K21.9 Gastro-esophageal reflux disease without esophagitis; Z91.5 Personal history of self-harm
CPT/HCPCS: 36415; 80053; 85027; 86593; 87389; 93005; 93010; J0475; J0735; Q0162

== ENCOUNTER 2019-03-21 12:58 | Inpatient (IN) | payer OTHER ==
[2019-03-21 15:05] VITALS: BMI 30.7
--- NOTE | 2019-03-21 16:33 | HP ---
CIWA Score - Admission Criteria [facility]ASAS Guidelines: Admission for Medically Managed Detox: Requires at least one of the followin. CIWA greater than 12 2. Seizures within the past 24 hours 3. Delirium tremens within the past 24 hours 4. Hallucinations within the past 24 hours 5. Acute intervention needed for co occurring medical disorder 6. Acute intervention needed for co occurring psychiatric disorder 7. Severe withdrawal that cannot be handled at a lower level of care (continued vomiting, continued diarrhea, abnormal vital signs) requiring intravenous medication and/or fluids 8. Admission ROS [facility] Chief Complaint: rehab from benzo use 33yo with h/o bipolar d/o. Was last here in 12/2018 for rehab from benzo. Lives in a sober living space- random checks at the Sober house was positive benzo, b/c of his using Ativan, pt was asked to come to detox/rehab. PCP- Dr. West, in [place] Ativan- 2mg a day- says he is buying from the street, last use 1 week ago Utox here is negative for benzo. Other meds: trazodone for sleep protonix Allergies/Adverse Reactions: Allergies Allergy/AdvReac Type Severity Reaction Status Date / Time citalopram hydrobromide Allergy Severe Hives Verified 03/21/19 14:59 [From Celexa] bee pollen Allergy Rash Verified 03/21/19 14:59 - Ebola screening Have you traveled outside of the country in the last 21 days: No Have you had contact with anyone from an Ebola affected area: No Patient History - Patient Medical History Hx Anemia: No Hx Asthma: No Hx Chronic Obstructive Pulmonary Disease (COPD): No Hx Cancer: No Hx Cardiac Disorders: No Hx Congestive Heart Failure: No Hx Hypertension: Yes (currently not on medication) Hx Hypercholesterolemia: No Hx Pacemaker: No HX Cerebrovascular Accident: No Hx Seizures: No Hx Dementia: No Hx Diabetes: No Hx Gastrointestinal Disorders: Yes (acid reflux) Hx Liver Disease: No Hx Genitourinary Disorders: No Hx Sexually Transmitted Disorders: No Hx Renal Disease (ESRD): No Hx Thyroid Disease: No Hx Human Immunodeficiency Virus (HIV): No Hx Hepatitis C: No Hx Depression: Yes Hx Suicide Attempt: Yes (pill overdose at age 23) Hx Bipolar Disorder: Yes Hx Schizophrenia: No - Patient Surgical History Past Surgical History: No Hx Neurologic Surgery: No Hx Cataract Extraction: No Hx Cardiac Surgery: No Hx Lung Surgery: No Hx Breast Surgery: No Hx Breast Biopsy: No Hx Abdominal Surgery: No Hx Appendectomy: No Hx Cholecystectomy: No Hx Genitourinary Surgery: No Hx Section: No Hx Orthopedic Surgery: No Anesthesia Reaction: No - PPD History Date: 12/15/18 Results: 0 mm - Smoking Cessation Smoking history: Current every day smoker Have you smoked in the past 12 months: Yes Aproximately how many cigarettes per day: 20 Cigars Per Day: 0 Hx Chewing Tobacco Use: No Initiated information on smoking cessation: Yes 'Breaking Loose' booklet given: 03/21/19 - Substance & Tx. History Hx Alcohol Use: Yes Hx Substance Use: Yes Substance Use Type: Tranquilizers Hx Substance Use Treatment: Yes - Substances abused Other Other (specify): ATIVAN Substance route: Oral Frequency: Daily Amount used: 2 MG PILLS Age of first use: 25 Date of last use: 03/18/19 Family Disease History - Family Disease History Family Disease History: CA: Mother (HAD CA. OF THE COLON AND ), Other: Father (DEPENDENT ON DRUGS) Admission Physical Exam S - Vital Signs Vital Signs: Vital Signs - 24 hr 03/21/19 15:01 Temperature 98.9 F Pulse Rate 110 H Respiratory 18 Rate Blood Pressure 128/85 - Physical General Appearance: Yes: Within Normal Limits, Mild Distress HEENTM: Yes: Within Normal Limits, Hearing grossly Normal, Normal Voice, ALEXI Respiratory: Yes: Within Normal Limits, Lungs Clear Neck: Yes: Within Normal Limits, No masses,lesions,Nodules Cardiology: Yes: Within Normal Limits, Regular Rhythm Abdominal: Yes: Within Normal Limits, Protuberent, Distended Back: Yes: Within Normal Limits Musculoskeletal: Yes: Within Normal Limits Extremities: Yes: Within Normal Limits, Normal Capillary Refill, Normal Inspection Neurological: Yes: Within Normal Limits, administrative appeals tribunal member II-XII NML intact, Fully Oriented Integumentary: Yes: Within Normal Limits, Normal Color Lymphatic: Yes: Within Normal Limits Breathalyzer - Breathalyzer Breathalyzer: 0 Urine Drug Screen - Test Device Lot number: [id number] Expiration date: 12/07/20 - Control Is test valid?: Yes - Results Drug screen NEGATIVE: Yes Inpatient Rehab Admission - Rehab Decision to Admit Inpatient rehab admission?: Yes - Initial Determination Are CD services needed?: Yes Free of communicable disease: Yes Not in need of hospitalization: Yes - Rehab Admission Criteria Previous failed treatment: Yes Poor recovery environment: Yes Comorbidities: Yes Lacks judgement: Yes Patient is meeting Inpatient Rehab admission criteria:: Yes (benzo use disorder)
[2019-03-21] MEDS ORDERED: MENTHOL/PHENOL 1 EACH UD MM PRN (16:39)
[2019-03-21] MEDS ORDERED: guaiFENesin 200 MG/10 ML 10 ML UNIT-DOSE CUPS PO PRN (16:39)
[2019-03-21] MEDS ORDERED: MAGNESIUM HYDROX 2400MG/30ML ORAL SUSPENSION 30 ML CUP PO PRN (16:39)
[2019-03-21] MEDS ORDERED: P-EPHED 60MG/TRIPROLIDI 2.5MG TABLET PO PRN (16:39)
[2019-03-21] MEDS ORDERED: MAGNESIUM CITRATE 300 ML BOTTLE PO PRN (16:39)
[2019-03-21] MEDS ORDERED: LOPERAMIDE HCL 2 MG CAPSULE PO PRN (16:39)
[2019-03-21] MEDS ORDERED: ACETAMINOPHEN 325 MG TABLET (FP) PO PRN (16:39)
[2019-03-21] MEDS: NICOTINE POLACRILEX 4 MG GUM BC PRN (19:46)
[2019-03-21] MEDS: THIAMINE HCL 100 MG TABLET (FP) PO SCH (21:33)
[2019-03-21] MEDS: traZODone HCL 50 MG TABLET (FP) PO SCH (21:33)
[2019-03-21] MEDS ORDERED: MELATONIN 5 MG TABLETS PO PRN (22:00)
[2019-03-22] MEDS: MAG HYDROX/AL HYDROX/SIMETH 30 ML UNIT-DOSE CUP PO PRN ×2 (01:33→09:55)
[2019-03-22] MEDS: NICOTINE POLACRILEX 4 MG GUM BC PRN ×7 (06:25→21:24)
[2019-03-22] MEDS: LORATADINE 10 MG TABLET PO SCH (09:55)
[2019-03-22] MEDS: PRENATAL VITAMINS W/ FOLIC ACID TABLET (FP) PO SCH (09:56)
[2019-03-22 11:59] LABS: ALBUMIN 3.6 g/dl (3.4-5.0); BILIRUBIN,TOTAL 0.4 mg/dL (0.2-1); CALCIUM 8.9 mg/dL (8.5-10.1); TOT PROT 6.7 g/dl (6.4-8.2)
[2019-03-22 12:00] LABS: BASO % 0.6 % (0-2.0); EOS % 1.3 % (0-4.5); HEMATOCRIT 39.5 % (35.4-49); HEMOGLOBIN 13.3 GM/dL (11.7-16.9); LYMPH % 34.2 % (8-40); MCH 29.4 pg (25.7-33.7); MCHC 33.8 g/dl (32.0-35.9); MEAN CELL VOLUME 86.9 fl (80-96); MEAN PLT VOLUME 9.1 fl (7.5-11.1); MONO % 6.1 % (3.8-10.2); NEUT % 57.8 % (42.8-82.8); PLATELET COUNT 168 K/MM3 (134-434); RBC 4.54 M/mm3 (4.00-5.60); RDW 13.5 % (11.9-15.9); WHITE BLOOD COUNT 6.5 K/mm3 (4.0-10.0)
[2019-03-22] MEDS: PANTOPRAZOLE 40 MG TABLET (FP) PO SCH ×2 (14:05→21:24)
[2019-03-22] MEDS: hydrOXYzine PAMOATE 50 MG CAPSULE (FP) PO PRN (15:08)
[2019-03-22] MEDS: THIAMINE HCL 100 MG TABLET (FP) PO SCH (21:23)
[2019-03-22] MEDS: traZODone HCL 50 MG TABLET (FP) PO SCH (21:24)
[2019-03-23] MEDS: NICOTINE POLACRILEX 4 MG GUM BC PRN ×7 (06:20→21:17)
[2019-03-23] MEDS: PANTOPRAZOLE 40 MG TABLET (FP) PO SCH ×2 (10:23→21:16)
[2019-03-23] MEDS: PRENATAL VITAMINS W/ FOLIC ACID TABLET (FP) PO SCH (10:23)
[2019-03-23] MEDS: LORATADINE 10 MG TABLET PO SCH (10:23)
[2019-03-23] MEDS: hydrOXYzine PAMOATE 50 MG CAPSULE (FP) PO PRN (10:24)
[2019-03-23] MEDS: IBUPROFEN 400 MG TABLET (FP) PO PRN ×2 (14:50→22:07)
[2019-03-23] MEDS: traZODone HCL 50 MG TABLET (FP) PO SCH (21:16)
[2019-03-23] MEDS: THIAMINE HCL 100 MG TABLET (FP) PO SCH (21:16)
[2019-03-24] MEDS: NICOTINE POLACRILEX 4 MG GUM BC PRN ×6 (06:28→21:46)
[2019-03-24] MEDS: LORATADINE 10 MG TABLET PO SCH (09:47)
[2019-03-24] MEDS: PRENATAL VITAMINS W/ FOLIC ACID TABLET (FP) PO SCH (09:47)
[2019-03-24] MEDS: PANTOPRAZOLE 40 MG TABLET (FP) PO SCH ×2 (09:47→21:31)
[2019-03-24] MEDS: IBUPROFEN 400 MG TABLET (FP) PO PRN (11:22)
[2019-03-24] MEDS: hydrOXYzine PAMOATE 50 MG CAPSULE (FP) PO PRN ×2 (12:39→21:32)
[2019-03-24] MEDS: THIAMINE HCL 100 MG TABLET (FP) PO SCH (21:31)
[2019-03-24] MEDS: traZODone HCL 50 MG TABLET (FP) PO SCH (21:31)
[2019-03-25] MEDS: NICOTINE POLACRILEX 4 MG GUM BC PRN ×7 (06:04→21:25)
[2019-03-25] MEDS: PANTOPRAZOLE 40 MG TABLET (FP) PO SCH ×2 (09:30→21:25)
[2019-03-25] MEDS: LORATADINE 10 MG TABLET PO SCH (09:30)
[2019-03-25] MEDS: PRENATAL VITAMINS W/ FOLIC ACID TABLET (FP) PO SCH (09:30)
[2019-03-25] MEDS: hydrOXYzine PAMOATE 50 MG CAPSULE (FP) PO PRN ×2 (12:40→16:43)
[2019-03-25] MEDS: IBUPROFEN 400 MG TABLET (FP) PO PRN (19:06)
[2019-03-25] MEDS: traZODone HCL 50 MG TABLET (FP) PO SCH (21:25)
[2019-03-25] MEDS: THIAMINE HCL 100 MG TABLET (FP) PO SCH (21:25)
[2019-03-26] MEDS: NICOTINE POLACRILEX 4 MG GUM BC PRN ×6 (06:26→21:33)
[2019-03-26] MEDS: PRENATAL VITAMINS W/ FOLIC ACID TABLET (FP) PO SCH (10:12)
[2019-03-26] MEDS: PANTOPRAZOLE 40 MG TABLET (FP) PO SCH ×2 (10:12→21:31)
[2019-03-26] MEDS: LORATADINE 10 MG TABLET PO SCH (10:12)
[2019-03-26] MEDS: hydrOXYzine PAMOATE 50 MG CAPSULE (FP) PO PRN ×2 (11:48→21:31)
[2019-03-26] MEDS: IBUPROFEN 400 MG TABLET (FP) PO PRN ×2 (14:18→21:32)
[2019-03-26] MEDS: traZODone HCL 50 MG TABLET (FP) PO SCH (21:31)
[2019-03-26] MEDS: THIAMINE HCL 100 MG TABLET (FP) PO SCH (21:31)
[2019-03-27] MEDS: NICOTINE POLACRILEX 4 MG GUM BC PRN ×6 (06:11→21:26)
[2019-03-27] MEDS: PANTOPRAZOLE 40 MG TABLET (FP) PO SCH ×2 (10:00→21:26)
[2019-03-27] MEDS: PRENATAL VITAMINS W/ FOLIC ACID TABLET (FP) PO SCH (10:00)
[2019-03-27] MEDS: LORATADINE 10 MG TABLET PO SCH (10:00)
[2019-03-27] MEDS: IBUPROFEN 400 MG TABLET (FP) PO PRN (12:03)
[2019-03-27] MEDS: hydrOXYzine PAMOATE 50 MG CAPSULE (FP) PO PRN ×2 (12:51→21:26)
[2019-03-27] MEDS: THIAMINE HCL 100 MG TABLET (FP) PO SCH (21:26)
[2019-03-27] MEDS: traZODone HCL 50 MG TABLET (FP) PO SCH (21:26)
[2019-03-28] MEDS: NICOTINE POLACRILEX 4 MG GUM BC PRN ×6 (06:12→21:23)
[2019-03-28] MEDS: PANTOPRAZOLE 40 MG TABLET (FP) PO SCH ×2 (10:12→21:22)
[2019-03-28] MEDS: PRENATAL VITAMINS W/ FOLIC ACID TABLET (FP) PO SCH (10:12)
[2019-03-28] MEDS: hydrOXYzine PAMOATE 50 MG CAPSULE (FP) PO PRN ×2 (10:12→21:22)
[2019-03-28] MEDS: LORATADINE 10 MG TABLET PO SCH (10:12)
[2019-03-28] MEDS: THIAMINE HCL 100 MG TABLET (FP) PO SCH (21:22)
[2019-03-28] MEDS: traZODone HCL 50 MG TABLET (FP) PO SCH (21:22)
[2019-03-29] MEDS: NICOTINE POLACRILEX 4 MG GUM BC PRN ×7 (06:27→22:25)
[2019-03-29] MEDS: LORATADINE 10 MG TABLET PO SCH (09:48)
[2019-03-29] MEDS: PRENATAL VITAMINS W/ FOLIC ACID TABLET (FP) PO SCH (09:48)
[2019-03-29] MEDS: PANTOPRAZOLE 40 MG TABLET (FP) PO SCH ×2 (09:48→21:46)
[2019-03-29] MEDS: hydrOXYzine PAMOATE 50 MG CAPSULE (FP) PO PRN (14:23)
[2019-03-29] MEDS: IBUPROFEN 400 MG TABLET (FP) PO PRN (20:18)
[2019-03-29] MEDS: THIAMINE HCL 100 MG TABLET (FP) PO SCH (21:45)
[2019-03-29] MEDS: traZODone HCL 50 MG TABLET (FP) PO SCH (21:46)
[2019-03-30] MEDS: NICOTINE POLACRILEX 4 MG GUM BC PRN ×5 (06:39→21:32)
[2019-03-30] MEDS: PANTOPRAZOLE 40 MG TABLET (FP) PO SCH ×2 (09:48→21:32)
[2019-03-30] MEDS: LORATADINE 10 MG TABLET PO SCH (09:48)
[2019-03-30] MEDS: PRENATAL VITAMINS W/ FOLIC ACID TABLET (FP) PO SCH (09:48)
[2019-03-30] MEDS: hydrOXYzine PAMOATE 50 MG CAPSULE (FP) PO PRN ×3 (09:49→21:33)
[2019-03-30] MEDS: IBUPROFEN 400 MG TABLET (FP) PO PRN ×2 (13:41→22:00)
[2019-03-30] MEDS: traZODone HCL 50 MG TABLET (FP) PO SCH (21:32)
[2019-03-30] MEDS: THIAMINE HCL 100 MG TABLET (FP) PO SCH (21:32)
[2019-03-31] MEDS: NICOTINE POLACRILEX 4 MG GUM BC PRN ×6 (06:11→21:25)
[2019-03-31] MEDS: LORATADINE 10 MG TABLET PO SCH (09:51)
[2019-03-31] MEDS: hydrOXYzine PAMOATE 50 MG CAPSULE (FP) PO PRN ×3 (09:51→21:24)
[2019-03-31] MEDS: PRENATAL VITAMINS W/ FOLIC ACID TABLET (FP) PO SCH (09:51)
[2019-03-31] MEDS: PANTOPRAZOLE 40 MG TABLET (FP) PO SCH ×2 (09:51→21:24)
[2019-03-31] MEDS: traZODone HCL 50 MG TABLET (FP) PO SCH (21:24)
[2019-03-31] MEDS: THIAMINE HCL 100 MG TABLET (FP) PO SCH (21:24)
[2019-04-01] MEDS: NICOTINE POLACRILEX 4 MG GUM BC PRN ×6 (06:05→21:39)
[2019-04-01] MEDS: LORATADINE 10 MG TABLET PO SCH (10:16)
[2019-04-01] MEDS: PANTOPRAZOLE 40 MG TABLET (FP) PO SCH ×2 (10:16→21:38)
[2019-04-01] MEDS: PRENATAL VITAMINS W/ FOLIC ACID TABLET (FP) PO SCH (10:16)
[2019-04-01] MEDS: hydrOXYzine PAMOATE 50 MG CAPSULE (FP) PO PRN ×2 (13:33→21:38)
[2019-04-01] MEDS: traZODone HCL 50 MG TABLET (FP) PO SCH (21:38)
[2019-04-01] MEDS: THIAMINE HCL 100 MG TABLET (FP) PO SCH (21:38)
[2019-04-02] MEDS: NICOTINE POLACRILEX 4 MG GUM BC PRN ×5 (06:43→21:27)
[2019-04-02] MEDS: LORATADINE 10 MG TABLET PO SCH (09:47)
[2019-04-02] MEDS: hydrOXYzine PAMOATE 50 MG CAPSULE (FP) PO PRN ×2 (09:47→21:25)
[2019-04-02] MEDS: PANTOPRAZOLE 40 MG TABLET (FP) PO SCH ×2 (09:47→21:25)
[2019-04-02] MEDS: PRENATAL VITAMINS W/ FOLIC ACID TABLET (FP) PO SCH (09:47)
[2019-04-02] MEDS: THIAMINE HCL 100 MG TABLET (FP) PO SCH (21:25)
[2019-04-02] MEDS: IBUPROFEN 400 MG TABLET (FP) PO PRN (21:25)
[2019-04-02] MEDS: traZODone HCL 50 MG TABLET (FP) PO SCH (21:25)
[2019-04-03] MEDS: NICOTINE POLACRILEX 4 MG GUM BC PRN ×4 (06:15→14:32)
[2019-04-03 06:53] VITALS: BP 128/74; PULSE 105; TEMP 97.5
[2019-04-03] MEDS: PRENATAL VITAMINS W/ FOLIC ACID TABLET (FP) PO SCH (09:49)
[2019-04-03] MEDS: PANTOPRAZOLE 40 MG TABLET (FP) PO SCH (09:49)
[2019-04-03] MEDS: LORATADINE 10 MG TABLET PO SCH (09:49)
[2019-04-03] MEDS: hydrOXYzine PAMOATE 50 MG CAPSULE (FP) PO PRN (12:21)
--- NOTE | 2019-04-03 17:34 | DS ---
[facility] Detox Discharge Summary Admission Date: 03/21/19 Discharge Date: 04/03/19 - History Present History: Sedative Dependence - Physical Exam Results Vital Signs: Vital Signs Temperature 97.5 F L 04/03/19 06:52 Pulse Rate 105 H 04/03/19 06:52 Respiratory Rate 20 04/03/19 06:52 Blood Pressure 128/74 04/03/19 06:52 O2 Sat by Pulse Oximetry (%) Pertinent Admission Physical Exam Findings: Laboratory Last Values WBC 6.5 K/mm3 (4.0-10.0) 03/22/19 08:50 RBC 4.54 M/mm3 (4.00-5.60) 03/22/19 08:50 Hgb 13.3 GM/dL (11.7-16.9) 03/22/19 08:50 Hct 39.5 % (35.4-49) 03/22/19 08:50 MCV 86.9 fl (80-96) 03/22/19 08:50 MCH 29.4 pg (25.7-33.7) 03/22/19 08:50 MCHC 33.8 g/dl (32.0-35.9) 03/22/19 08:50 RDW 13.5 % (11.9-15.9) 03/22/19 08:50 Plt Count 168 K/MM3 (134-434) 03/22/19 08:50 MPV 9.1 fl (7.5-11.1) 03/22/19 08:50 Absolute Neuts (auto) 3.7 K/mm3 (1.5-8.0) 03/22/19 08:50 Neutrophils % 57.8 % (42.8-82.8) 03/22/19 08:50 Lymphocytes % 34.2 % (8-40) D 03/22/19 08:50 Monocytes % 6.1 % (3.8-10.2) 03/22/19 08:50 Eosinophils % 1.3 % (0-4.5) 03/22/19 08:50 Basophils % 0.6 % (0-2.0) 03/22/19 08:50 Nucleated RBC % 0 % (0-0) 03/22/19 08:50 Sodium 139 mmol/L (136-145) 03/22/19 08:50 Potassium 4.0 mmol/L (3.5-5.1) 03/22/19 08:50 Chloride 104 mmol/L (98-107) 03/22/19 08:50 Carbon Dioxide 28 mmol/L (21-32) 03/22/19 08:50 Anion Gap 7 MMOL/L (8-16) L 03/22/19 08:50 BUN 11.0 mg/dL (7-18) 03/22/19 08:50 Creatinine 1.0 mg/dL (0.55-1.3) 03/22/19 08:50 Est GFR (CKD-EPI)AfAm 114.11 03/22/19 08:50 Est GFR (CKD-EPI)NonAf 98.45 03/22/19 08:50 POC Glucometer 108 UNITS (80-120) 03/25/19 06:03 Random Glucose 148 mg/dL (74-106) H 03/22/19 08:50 Calcium 8.9 mg/dL (8.5-10.1) 03/22/19 08:50 Total Bilirubin 0.4 mg/dL (0.2-1) 03/22/19 08:50 AST 21 U/L (15-37) 03/22/19 08:50 ALT 51 U/L (13-61) 03/22/19 08:50 Alkaline Phosphatase 92 U/L (45-117) 03/22/19 08:50 Total Protein 6.7 g/dl (6.4-8.2) 03/22/19 08:50 Albumin 3.6 g/dl (3.4-5.0) 03/22/19 08:50 RPR Titer Nonreactive (NONREACTIVE) 03/22/19 08:50 HIV 1&2 Antibody Screen Negative 03/22/19 08:50 HIV P24 Antigen Negative 03/22/19 08:50 LABS NOTED - Treatment Patient has Accepted a Rehab Referral to: COMPLETED REHAB - Medication Discharge Medications: Ambulatory Orders Pantoprazole Sodium [Protonix -] 40 mg PO DAILY #30 tablet.ec 07/11/16 traZODone HCL [Trazodone HCl] 50 mg PO HS 03/21/19 - Diagnosis (1) Uncomplicated sedative, hypnotic or anxiolytic withdrawal Current Visit: Yes Status: Chronic - AMA Did Patient Leave Against Medical Advice: No (EARLY DISCHARGE FROM REHAB )
== END 2019-04-03 17:48 | disposition home or self-care (01) | DRG 895 ==
LOC: YASAS 12:58 → Y3W 17:32
PROVIDERS: ADMIT Neuromusculoskeletal Medicine & OMM; ATTEND Surgery
PROC: HZ42ZZZ Group Counseling for Substance Abuse Treatment, Cognitive-Behavioral (ICD-10-PCS; principal; 2019-03-21)
DX: F13.20 Sedative, hypnotic or anxiolytic dependence, uncomplicated (principal); F17.210 Nicotine dependence, cigarettes, uncomplicated; K21.9 Gastro-esophageal reflux disease without esophagitis; Z91.5 Personal history of self-harm
CPT/HCPCS: 36415; 80053; 82962; 85025; 86593; 87389

== ENCOUNTER 2020-12-11 14:01 | Inpatient (IN) | payer MEDICARE ==
[2020-12-11 16:07] VITALS: BMI 26.9
[2020-12-11] MEDS ORDERED: guaiFENesin 200 MG/10 ML 10 ML UNIT-DOSE CUPS PO PRN (21:05)
[2020-12-11] MEDS ORDERED: IBUPROFEN 400 MG TABLET (FP) PO PRN (21:05)
[2020-12-11] MEDS ORDERED: LOPERAMIDE HCL 2 MG CAPSULE PO PRN (21:05)
[2020-12-11] MEDS ORDERED: MAGNESIUM CITRATE 300 ML BOTTLE PO PRN (21:05)
[2020-12-11] MEDS ORDERED: MAGNESIUM HYDROX 2400MG/30ML ORAL SUSPENSION 30 ML CUP PO PRN (21:05)
[2020-12-11] MEDS ORDERED: ACETAMINOPHEN 325 MG TABLET (FP) PO PRN (21:05)
[2020-12-11] MEDS ORDERED: P-EPHED 60MG/TRIPROLIDI 2.5MG TABLET PO PRN (21:05)
[2020-12-12] MEDS: MELATONIN 5 MG TABLETS PO SCH ×2 (01:29→21:25)
[2020-12-12] MEDS: THIAMINE HCL 100 MG TABLET (FP) PO SCH ×2 (01:29→21:25)
[2020-12-12] MEDS: NICOTINE POLACRILEX 2 MG GUM BC PRN ×5 (06:44→21:26)
[2020-12-12] MEDS: PRENATAL VITAMINS W/ FOLIC ACID TABLET (FP) PO SCH (10:07)
[2020-12-12 11:25] LABS: POTASSIUM 3.7 mmol/L (3.5-5.1)
[2020-12-12 11:29] LABS: BLOOD UREA NITROGEN 19.4 mg/dL (7-18)
[2020-12-12 11:31] LABS: CALCIUM 8.8 mg/dL (8.5-10.1); HEMATOCRIT 41.7 % (35.4-49); HEMOGLOBIN 14.4 GM/dL (11.7-16.9); MCHC 34.5 g/dl (32.0-35.9); MEAN CELL VOLUME 89.8 fl (80-96); PLATELET COUNT 188 K/MM3 (134-434); RBC 4.65 M/mm3 (4.00-5.60); RDW 14.5 % (11.9-15.9); WHITE BLOOD COUNT 9.6 K/mm3 (4.0-10.0)
[2020-12-12 11:32] LABS: ALBUMIN 3.6 g/dl (3.4-5.0)
[2020-12-12 11:33] LABS: BILIRUBIN,TOTAL 0.3 mg/dL (0.2-1)
[2020-12-12 11:34] LABS: TOT PROT 6.8 g/dl (6.4-8.2)
[2020-12-12 17:58] LABS: PH,URINE 7.5 (5.0-8.0); URINE APPEARANCE CLEAR; URINE BILIRUBIN NEGATIVE (NEGATIVE); URINE COLOR YELLOW; URINE GLUCOSE (UA) NEGATIVE (NEGATIVE); URINE KETONE NEGATIVE (NEGATIVE); URINE LEUK ESTERASE NEGATIVE (NEGATIVE); URINE NITRITE NEGATIVE (NEGATIVE); URINE PROTEIN NEGATIVE (NEGATIVE); URINE UROBILINOGEN 0.2 mg/dL (0.2-1.0)
[2020-12-12] MEDS: MAG HYDROX/AL HYDROX/SIMETH 30 ML UNIT-DOSE CUP PO PRN (22:08)
[2020-12-13] MEDS: NICOTINE POLACRILEX 2 MG GUM BC PRN ×6 (05:46→21:39)
[2020-12-13] MEDS: MAG HYDROX/AL HYDROX/SIMETH 30 ML UNIT-DOSE CUP PO PRN (09:03)
[2020-12-13] MEDS: PRENATAL VITAMINS W/ FOLIC ACID TABLET (FP) PO SCH (10:23)
[2020-12-13] MEDS: MELATONIN 5 MG TABLETS PO SCH (21:38)
[2020-12-13] MEDS: THIAMINE HCL 100 MG TABLET (FP) PO SCH (21:38)
[2020-12-14] MEDS: NICOTINE POLACRILEX 2 MG GUM BC PRN ×6 (06:20→22:13)
[2020-12-14] MEDS: PRENATAL VITAMINS W/ FOLIC ACID TABLET (FP) PO SCH (11:34)
[2020-12-14] MEDS: THIAMINE HCL 100 MG TABLET (FP) PO SCH (21:24)
[2020-12-14] MEDS: MELATONIN 5 MG TABLETS PO SCH (21:24)
[2020-12-15] MEDS: NICOTINE POLACRILEX 2 MG GUM BC PRN ×5 (07:05→21:30)
[2020-12-15] MEDS: PRENATAL VITAMINS W/ FOLIC ACID TABLET (FP) PO SCH (09:52)
[2020-12-15] MEDS ORDERED: PANTOPRAZOLE 40 MG TABLET PO SCH (12:00)
[2020-12-15] MEDS: MELATONIN 5 MG TABLETS PO SCH (21:30)
[2020-12-15] MEDS: THIAMINE HCL 100 MG TABLET (FP) PO SCH (21:30)
[2020-12-15] MEDS: FAMOTIDINE 20 MG TABLET PO SCH (21:30)
[2020-12-16] MEDS: NICOTINE POLACRILEX 2 MG GUM BC PRN ×6 (06:35→21:18)
[2020-12-16] MEDS: FAMOTIDINE 20 MG TABLET PO SCH ×2 (09:53→21:18)
[2020-12-16] MEDS: PRENATAL VITAMINS W/ FOLIC ACID TABLET (FP) PO SCH (09:53)
[2020-12-16] MEDS: MELATONIN 5 MG TABLETS PO SCH (21:18)
[2020-12-16] MEDS: THIAMINE HCL 100 MG TABLET (FP) PO SCH (21:18)
[2020-12-17] MEDS: NICOTINE POLACRILEX 2 MG GUM BC PRN ×5 (06:19→19:42)
[2020-12-17] MEDS: PRENATAL VITAMINS W/ FOLIC ACID TABLET (FP) PO SCH (10:03)
[2020-12-17] MEDS: FAMOTIDINE 20 MG TABLET PO SCH (10:04)
[2020-12-17] MEDS: MELATONIN 5 MG TABLETS PO SCH (21:30)
[2020-12-17] MEDS: THIAMINE HCL 100 MG TABLET (FP) PO SCH (21:30)
[2020-12-18] MEDS: NICOTINE POLACRILEX 2 MG GUM BC PRN ×6 (06:47→18:17)
[2020-12-18] MEDS: PANTOPRAZOLE 40 MG TABLET PO SCH (10:07)
[2020-12-18] MEDS: PRENATAL VITAMINS W/ FOLIC ACID TABLET (FP) PO SCH (10:07)
[2020-12-18] MEDS: MELATONIN 5 MG TABLETS PO SCH (21:27)
[2020-12-18] MEDS: THIAMINE HCL 100 MG TABLET (FP) PO SCH (21:27)
[2020-12-19] MEDS: PRENATAL VITAMINS W/ FOLIC ACID TABLET (FP) PO SCH (09:48)
[2020-12-19] MEDS: PANTOPRAZOLE 40 MG TABLET PO SCH (09:48)
[2020-12-19] MEDS: NICOTINE POLACRILEX 2 MG GUM BC PRN ×3 (09:49→21:06)
[2020-12-19] MEDS: MELATONIN 5 MG TABLETS PO SCH (21:06)
[2020-12-19] MEDS: THIAMINE HCL 100 MG TABLET (FP) PO SCH (21:06)
[2020-12-20] MEDS: NICOTINE POLACRILEX 2 MG GUM BC PRN ×4 (06:22→13:56)
[2020-12-20 06:41] VITALS: BP 125/78; PULSE 73; TEMP 97.1
[2020-12-20] MEDS: PRENATAL VITAMINS W/ FOLIC ACID TABLET (FP) PO SCH (09:44)
[2020-12-20] MEDS: PANTOPRAZOLE 40 MG TABLET PO SCH (09:44)
== END 2020-12-20 14:30 | disposition home or self-care (01) | DRG 895 ==
LOC: YASAS 14:01 → Y5N 21:08 → Y3E 12-19 16:14
PROVIDERS: ADMIT Allergy & Immunology; ATTEND Allergy & Immunology
PROC: HZ42ZZZ Group Counseling for Substance Abuse Treatment, Cognitive-Behavioral (ICD-10-PCS; principal; 2020-12-11)
DX: F14.20 Cocaine dependence, uncomplicated (principal); F13.20 Sedative, hypnotic or anxiolytic dependence, uncomplicated; F19.280 Other psychoactive substance dependence with psychoactive substance-induced anxiety disorder; F19.282 Other psychoactive substance dependence with psychoactive substance-induced sleep disorder; F19.24 Other psychoactive substance dependence with psychoactive substance-induced mood disorder; F10.20 Alcohol dependence, uncomplicated; F17.210 Nicotine dependence, cigarettes, uncomplicated; F43.10 Post-traumatic stress disorder, unspecified; F32.9 Major depressive disorder, single episode, unspecified; F41.8 Other specified anxiety disorders; I10 Essential (primary) hypertension; K21.9 Gastro-esophageal reflux disease without esophagitis; J45.909 Unspecified asthma, uncomplicated; M41.9 Scoliosis, unspecified; M54.5 Low back pain; G89.29 Other chronic pain; Z62.810 Personal history of physical and sexual abuse in childhood; Z91.410 Personal history of adult physical and sexual abuse; Z88.0 Allergy status to penicillin; Z59.0 Homelessness
CPT/HCPCS: 36415; 80053; 81003; 85027; 86780; C9803; U0003

== ENCOUNTER 2021-02-16 10:09 | Inpatient (IN) | payer MEDICARE, OTHER ==
[2021-02-16 10:58] VITALS: BMI 29.2
[2021-02-16] MEDS ORDERED: MENTHOL/PHENOL 1 EACH UD MM PRN (11:16)
[2021-02-16] MEDS ORDERED: MAGNESIUM CITRATE 300 ML BOTTLE PO PRN (11:16)
[2021-02-16] MEDS ORDERED: MAGNESIUM HYDROX 2400MG/30ML ORAL SUSPENSION 30 ML CUP PO PRN (11:16)
[2021-02-16] MEDS ORDERED: BISMUTH SUBSALICYLATE 262 MG/15 ML BTL PO PRN (11:16)
[2021-02-16] MEDS ORDERED: diazePAM 5 MG TABLET PO PRN (11:16)
[2021-02-16] MEDS ORDERED: ACETAMINOPHEN 325 MG TABLET (FP) PO PRN (11:16)
[2021-02-16] MEDS ORDERED: IBUPROFEN 400 MG TABLET (FP) PO PRN (11:16)
[2021-02-16] MEDS: diazePAM 5 MG TABLET PO SCH ×3 (11:54→22:18)
[2021-02-16] MEDS: ACETAMINOPHEN 325 MG TABLET (FP) PO PRN (11:55)
[2021-02-16] MEDS: ONDANSETRON *ODT* 4 MG TABLET SL PRN (11:56)
[2021-02-16] MEDS: PRENATAL VITAMINS W/ FOLIC ACID TABLET (FP) PO SCH (14:21)
[2021-02-16] MEDS: hydrOXYzine PAMOATE 25 MG CAPSULE (FP) PO SCH ×3 (14:28→22:18)
[2021-02-16] MEDS: NICOTINE POLACRILEX 2 MG GUM BUC PRN ×2 (14:29→22:20)
[2021-02-16 14:41] LABS: HEMATOCRIT 43.4 % (35.4-49); HEMOGLOBIN 14.8 GM/dL (11.7-16.9); MCH 30.7 pg (25.7-33.7); MCHC 34.2 g/dl (32.0-35.9); MEAN CELL VOLUME 89.8 fl (80-96); MEAN PLT VOLUME 9.7 fl (7.5-11.1); PLATELET COUNT 169 K/MM3 (134-434); RBC 4.83 M/mm3 (4.00-5.60); WHITE BLOOD COUNT 6.6 K/mm3 (4.0-10.0)
[2021-02-16 14:49] LABS: BLOOD UREA NITROGEN 12.4 mg/dL (7-18)
[2021-02-16 14:50] LABS: ALBUMIN 4.3 g/dl (3.4-5.0)
[2021-02-16 14:54] LABS: BILIRUBIN,TOTAL 0.4 mg/dL (0.2-1)
[2021-02-16 15:00] LABS: TOT PROT 7.7 g/dl (6.4-8.2)
[2021-02-16] MEDS: THIAMINE HCL 100 MG TABLET (FP) PO SCH (22:18)
[2021-02-16] MEDS: MELATONIN 5 MG TABLETS PO SCH (22:29)
[2021-02-17] MEDS: hydrOXYzine PAMOATE 25 MG CAPSULE (FP) PO SCH ×2 (05:34→10:44)
[2021-02-17] MEDS: diazePAM 5 MG TABLET PO SCH ×4 (05:34→22:36)
[2021-02-17] MEDS: MAG HYDROX/AL HYDROX/SIMETH 30 ML UNIT-DOSE CUP PO PRN ×2 (05:35)
[2021-02-17] MEDS ORDERED: LOPERAMIDE HCL 2 MG CAPSULE PO ONE ×2 (09:46)
[2021-02-17] MEDS: hydrOXYzine PAMOATE 50 MG CAPSULE (FP) PO SCH ×3 (10:46→22:37)
[2021-02-17] MEDS: PRENATAL VITAMINS W/ FOLIC ACID TABLET (FP) PO SCH (10:46)
[2021-02-17] MEDS: PANTOPRAZOLE 40 MG TABLET PO SCH (10:46)
[2021-02-17] MEDS ORDERED: FLU VACCINE (FLULAVAL) PF 60 MCG/0.5 ML SYRINGE 2020-2021 IM ONE (12:00)
[2021-02-17] MEDS: DULoxetine HCL 30 MG CAPSULE.DR PO SCH (12:15)
[2021-02-17] MEDS: NICOTINE POLACRILEX 2 MG GUM BUC PRN ×4 (13:45→22:38)
[2021-02-17 14:03] LABS: HIV INTERPRETATION NEGATIVE (NEGATIVE)
[2021-02-17] MEDS: MELATONIN 5 MG TABLETS PO SCH (22:36)
[2021-02-17] MEDS: THIAMINE HCL 100 MG TABLET (FP) PO SCH (22:36)
[2021-02-17] MEDS: OLANZapine 5 MG TABLET PO SCH (22:37)
[2021-02-18] MEDS: hydrOXYzine PAMOATE 50 MG CAPSULE (FP) PO SCH ×4 (05:38→22:38)
[2021-02-18] MEDS: diazePAM 5 MG TABLET PO SCH ×3 (05:39→22:39)
[2021-02-18] MEDS: NICOTINE POLACRILEX 2 MG GUM BUC PRN ×4 (05:40→21:42)
[2021-02-18] MEDS: PANTOPRAZOLE 40 MG TABLET PO SCH (10:43)
[2021-02-18] MEDS: PRENATAL VITAMINS W/ FOLIC ACID TABLET (FP) PO SCH (10:43)
[2021-02-18] MEDS: DULoxetine HCL 30 MG CAPSULE.DR PO SCH (10:43)
[2021-02-18] MEDS: MAG HYDROX/AL HYDROX/SIMETH 30 ML UNIT-DOSE CUP PO PRN (21:42)
[2021-02-18] MEDS: THIAMINE HCL 100 MG TABLET (FP) PO SCH (22:39)
[2021-02-18] MEDS: OLANZapine 5 MG TABLET PO SCH (22:39)
[2021-02-18] MEDS: MELATONIN 5 MG TABLETS PO SCH (23:36)
[2021-02-19] MEDS: diazePAM 5 MG TABLET PO SCH ×2 (05:50→17:50)
[2021-02-19] MEDS: hydrOXYzine PAMOATE 50 MG CAPSULE (FP) PO SCH ×4 (05:51→22:16)
[2021-02-19] MEDS: NICOTINE POLACRILEX 2 MG GUM BUC PRN ×6 (05:54→22:17)
[2021-02-19] MEDS: PRENATAL VITAMINS W/ FOLIC ACID TABLET (FP) PO SCH (11:06)
[2021-02-19] MEDS: DULoxetine HCL 30 MG CAPSULE.DR PO SCH (11:06)
[2021-02-19] MEDS: PANTOPRAZOLE 40 MG TABLET PO SCH (11:07)
[2021-02-19] MEDS: OLANZapine 5 MG TABLET PO SCH (22:16)
[2021-02-19] MEDS: THIAMINE HCL 100 MG TABLET (FP) PO SCH (22:16)
[2021-02-19] MEDS: MELATONIN 5 MG TABLETS PO SCH (22:17)
[2021-02-20] MEDS: hydrOXYzine PAMOATE 50 MG CAPSULE (FP) PO SCH ×4 (05:43→22:38)
[2021-02-20] MEDS: MAG HYDROX/AL HYDROX/SIMETH 30 ML UNIT-DOSE CUP PO PRN (05:45)
[2021-02-20] MEDS ORDERED: diazePAM 5 MG TABLET PO ONE (06:00)
[2021-02-20] MEDS: NICOTINE POLACRILEX 2 MG GUM BUC PRN ×4 (09:08→22:39)
[2021-02-20] MEDS: PRENATAL VITAMINS W/ FOLIC ACID TABLET (FP) PO SCH (09:11)
[2021-02-20] MEDS: PANTOPRAZOLE 40 MG TABLET PO SCH (09:11)
[2021-02-20] MEDS: DULoxetine HCL 30 MG CAPSULE.DR PO SCH (09:11)
[2021-02-20] MEDS: THIAMINE HCL 100 MG TABLET (FP) PO SCH (22:38)
[2021-02-20] MEDS: MELATONIN 5 MG TABLETS PO SCH (22:38)
[2021-02-20] MEDS: OLANZapine 5 MG TABLET PO SCH (22:38)
[2021-02-21] MEDS: ACETAMINOPHEN 325 MG TABLET (FP) PO PRN (00:38)
[2021-02-21] MEDS: METHOCARBAMOL 500 MG TABLET PO PRN ×2 (00:38→21:25)
[2021-02-21] MEDS: NICOTINE POLACRILEX 2 MG GUM BUC PRN ×5 (05:37→21:27)
[2021-02-21 07:04] LABS: SARS-CoV-2 NAA NOT DETECTED
[2021-02-21] MEDS: hydrOXYzine PAMOATE 50 MG CAPSULE (FP) PO SCH ×4 (07:49→21:25)
[2021-02-21] MEDS: PANTOPRAZOLE 40 MG TABLET PO SCH (11:08)
[2021-02-21] MEDS: PRENATAL VITAMINS W/ FOLIC ACID TABLET (FP) PO SCH (11:08)
[2021-02-21] MEDS: DULoxetine HCL 30 MG CAPSULE.DR PO SCH (11:08)
[2021-02-21] MEDS: MELATONIN 5 MG TABLETS PO SCH (21:25)
[2021-02-21] MEDS: THIAMINE HCL 100 MG TABLET (FP) PO SCH (21:25)
[2021-02-21] MEDS: OLANZapine 5 MG TABLET PO SCH (21:26)
[2021-02-22] MEDS: hydrOXYzine PAMOATE 50 MG CAPSULE (FP) PO SCH ×2 (03:39→10:18)
[2021-02-22] MEDS: DULoxetine HCL 30 MG CAPSULE.DR PO SCH (10:17)
[2021-02-22] MEDS: PRENATAL VITAMINS W/ FOLIC ACID TABLET (FP) PO SCH (10:17)
[2021-02-22] MEDS: NICOTINE POLACRILEX 2 MG GUM BUC PRN ×5 (10:18→21:32)
[2021-02-22] MEDS: PANTOPRAZOLE 40 MG TABLET PO SCH (10:18)
[2021-02-22] MEDS ORDERED: PT OWN MED DRAWER 7, Y5N ONE (19:52)
[2021-02-22] MEDS: THIAMINE HCL 100 MG TABLET (FP) PO SCH (21:31)
[2021-02-22] MEDS: OLANZapine 5 MG TABLET PO SCH (21:31)
[2021-02-22] MEDS: MELATONIN 5 MG TABLETS PO SCH (21:31)
[2021-02-23] MEDS: NICOTINE POLACRILEX 2 MG GUM BUC PRN ×5 (06:09→18:40)
[2021-02-23] MEDS ORDERED: PT OWN MED DRAWER 7, Y5N ONE ×2 (09:10→19:27)
[2021-02-23] MEDS: PRENATAL VITAMINS W/ FOLIC ACID TABLET (FP) PO SCH (09:55)
[2021-02-23] MEDS: PANTOPRAZOLE 40 MG TABLET PO SCH (09:55)
[2021-02-23] MEDS: DULoxetine HCL 30 MG CAPSULE.DR PO SCH (09:55)
[2021-02-23] MEDS: MELATONIN 5 MG TABLETS PO SCH (21:31)
[2021-02-23] MEDS: THIAMINE HCL 100 MG TABLET (FP) PO SCH (21:31)
[2021-02-23] MEDS: OLANZapine 5 MG TABLET PO SCH (21:31)
[2021-02-24] MEDS: NICOTINE POLACRILEX 2 MG GUM BUC PRN ×6 (07:59→21:40)
[2021-02-24] MEDS: PANTOPRAZOLE 40 MG TABLET PO SCH (10:03)
[2021-02-24] MEDS: DULoxetine HCL 30 MG CAPSULE.DR PO SCH (10:03)
[2021-02-24] MEDS: PRENATAL VITAMINS W/ FOLIC ACID TABLET (FP) PO SCH (10:03)
[2021-02-24] MEDS ORDERED: PT OWN MED DRAWER 7, Y5N ONE (19:22)
[2021-02-24] MEDS: MELATONIN 5 MG TABLETS PO SCH (21:39)
[2021-02-24] MEDS: THIAMINE HCL 100 MG TABLET (FP) PO SCH (21:39)
[2021-02-24] MEDS: OLANZapine 5 MG TABLET PO SCH (21:39)
[2021-02-25] MEDS: NICOTINE POLACRILEX 2 MG GUM BUC PRN ×7 (06:29→22:15)
[2021-02-25] MEDS ORDERED: PT OWN MED DRAWER 7, Y5N ONE ×2 (08:47→18:33)
[2021-02-25] MEDS: DULoxetine HCL 30 MG CAPSULE.DR PO SCH (09:56)
[2021-02-25] MEDS: PRENATAL VITAMINS W/ FOLIC ACID TABLET (FP) PO SCH (09:56)
[2021-02-25] MEDS: PANTOPRAZOLE 40 MG TABLET PO SCH (09:56)
[2021-02-25] MEDS ORDERED: COVID-19 VAC,AD26(JANSSEN)/PF 0.5 ML IM ONE (10:00)
[2021-02-25] MEDS: THIAMINE HCL 100 MG TABLET (FP) PO SCH (21:16)
[2021-02-25] MEDS: OLANZapine 5 MG TABLET PO SCH (21:16)
[2021-02-25] MEDS: MELATONIN 5 MG TABLETS PO SCH (21:17)
[2021-02-26] MEDS: NICOTINE POLACRILEX 2 MG GUM BUC PRN ×3 (06:35→21:40)
[2021-02-26] MEDS: PRENATAL VITAMINS W/ FOLIC ACID TABLET (FP) PO SCH (09:48)
[2021-02-26] MEDS: PANTOPRAZOLE 40 MG TABLET PO SCH (09:49)
[2021-02-26] MEDS: DULoxetine HCL 30 MG CAPSULE.DR PO SCH (09:49)
[2021-02-26] MEDS: ONDANSETRON *ODT* 4 MG TABLET SL PRN (18:07)
[2021-02-26] MEDS: THIAMINE HCL 100 MG TABLET (FP) PO SCH (21:40)
[2021-02-26] MEDS: MELATONIN 5 MG TABLETS PO SCH (21:40)
[2021-02-26] MEDS: OLANZapine 5 MG TABLET PO SCH (21:40)
[2021-02-27 07:06] VITALS: BP 125/82; PULSE 95; TEMP 97.5
[2021-02-27] MEDS: NICOTINE POLACRILEX 2 MG GUM BUC PRN (10:04)
[2021-02-27] MEDS: PANTOPRAZOLE 40 MG TABLET PO SCH (10:04)
[2021-02-27] MEDS: DULoxetine HCL 30 MG CAPSULE.DR PO SCH (10:04)
[2021-02-27] MEDS: PRENATAL VITAMINS W/ FOLIC ACID TABLET (FP) PO SCH (10:04)
== END 2021-02-27 11:30 | disposition home or self-care (01) | DRG 895 ==
LOC: YASAS 10:09 → Y6N 12:57 → Y5N 02-21 15:01
PROVIDERS: ADMIT Allergy & Immunology; ATTEND Allergy & Immunology
PROC: HZ2ZZZZ Detoxification Services for Substance Abuse Treatment (ICD-10-PCS; 2021-02-16)
PROC: HZ42ZZZ Group Counseling for Substance Abuse Treatment, Cognitive-Behavioral (ICD-10-PCS; principal; 2021-02-21)
DX: F10.20 Alcohol dependence, uncomplicated (principal); F14.20 Cocaine dependence, uncomplicated; F13.20 Sedative, hypnotic or anxiolytic dependence, uncomplicated; F19.282 Other psychoactive substance dependence with psychoactive substance-induced sleep disorder; F17.210 Nicotine dependence, cigarettes, uncomplicated; F19.24 Other psychoactive substance dependence with psychoactive substance-induced mood disorder; F25.9 Schizoaffective disorder, unspecified; F31.9 Bipolar disorder, unspecified; F43.10 Post-traumatic stress disorder, unspecified; I10 Essential (primary) hypertension; K21.9 Gastro-esophageal reflux disease without esophagitis; M41.9 Scoliosis, unspecified; M54.5 Low back pain; G89.29 Other chronic pain; Z62.810 Personal history of physical and sexual abuse in childhood; Z88.8 Allergy status to other drugs, medicaments and biological substances; Z59.0 Homelessness; Z56.0 Unemployment, unspecified
CPT/HCPCS: 0031A; 36415; 80053; 85027; 86780; 87389; 91303; C9803; Q0162; U0003; U0005

== ENCOUNTER 2021-05-21 19:24 | Emergency (ER) | payer OTHER ==
[2021-05-21 19:32] VITALS: BP 129/78; PULSE 84; TEMP 99; BMI 27.1
[2021-05-21] MEDS ORDERED: ONDANSETRON 4 MG/2 ML VIAL IVPUSH ONE (19:48)
[2021-05-21] MEDS ORDERED: ACETAMINOPHEN 1000 MG/100 ML VIAL (NON FORMULARY) IVPB ONE (19:48)
[2021-05-21] MEDS ORDERED: SODIUM CHLORIDE 1,000 ML IV STA (19:48)
[2021-05-21 20:14] LABS: BASO % 2.1 % (0-2.0); EOS % 0.8 % (0-4.5); HEMATOCRIT 39.7 % (35.4-49); HEMOGLOBIN 13.8 GM/dL (11.7-16.9); LYMPH % 31.3 % (8-40); MCH 30.7 pg (25.7-33.7); MCHC 34.8 g/dl (32.0-35.9); MEAN PLT VOLUME 8.8 fl (7.5-11.1); MONO % 5.8 % (3.8-10.2); PLATELET COUNT 191 10^3/uL (134-434); RBC 4.51 M/mm3 (4.00-5.60); RDW 13.6 % (11.9-15.9); WHITE BLOOD COUNT 8.4 K/mm3 (4.0-10.0)
[2021-05-21 20:34] LABS: ALBUMIN 4.1 g/dl (3.4-5.0); CALCIUM 9.1 mg/dL (8.5-10.1)
[2021-05-21 20:35] LABS: BLOOD UREA NITROGEN 13.2 mg/dL (7-18)
[2021-05-21 20:37] LABS: CREATININE 1.1 mg/dL (0.55-1.3)
[2021-05-21 20:39] LABS: BILIRUBIN,TOTAL 0.6 mg/dL (0.2-1); TOT PROT 7.3 g/dl (6.4-8.2)
[2021-05-21] MEDS ORDERED: ONDANSETRON 4 MG/2 ML VIAL ONE (20:48)
[2021-05-21] MEDS ORDERED: ACETAMINOPHEN INJECTION 100 ML IVPB ONE (20:48)
== END 2021-05-21 23:21 | disposition home or self-care (01) ==
LOC: JER 19:24
PROC: 3E033NZ Introduction of Analgesics, Hypnotics, Sedatives into Peripheral Vein, Percutaneous Approach (ICD-10-PCS; principal; 2021-05-21)
PROC: 3E033GC Introduction of Other Therapeutic Substance into Peripheral Vein, Percutaneous Approach (ICD-10-PCS; 2021-05-21)
PROC: 3E0337Z Introduction of Electrolytic and Water Balance Substance into Peripheral Vein, Percutaneous Approach (ICD-10-PCS; 2021-05-21)
DX: R10.9 Unspecified abdominal pain (principal)
CPT/HCPCS: 36415; 74177-TC; 80053; 83690; 85025; 99285-25; J0131; Q9967

== ENCOUNTER 2021-05-29 12:11 | Emergency (ER) | payer OTHER ==
[2021-05-29 12:22] VITALS: BP 145/83; PULSE 81; TEMP 98.3; BMI 26.4
[2021-05-29] MEDS ORDERED: MECLIZINE HCL 25 MG TABLET (FP) PO ONE (13:24)
[2021-05-29] MEDS ORDERED: SODIUM CHLORIDE 0.9% 500 ML INFUS.BAG IV ONE (13:24)
[2021-05-29] MEDS ORDERED: METOCLOPRAMIDE HCL INJECTION 10 MG/2 ML VIAL IVPUSH ONE (13:24)
[2021-05-29] MEDS ORDERED: METOCLOPRAMIDE HCL INJECTION 10 MG/2 ML VIAL ONE (14:06)
[2021-05-29] MEDS ORDERED: MECLIZINE HCL 25 MG TABLET (FP) ONE (14:06)
[2021-05-29 14:48] LABS: BASO % 0.7 % (0-2.0); EOS % 0.6 % (0-4.5); HEMATOCRIT 40.8 % (35.4-49); HEMOGLOBIN 14.3 GM/dL (11.7-16.9); LYMPH % 26.8 % (8-40); MCH 30.4 pg (25.7-33.7); MCHC 35.1 g/dl (32.0-35.9); MEAN CELL VOLUME 86.6 fl (80-96); MEAN PLT VOLUME 8.5 fl (7.5-11.1); MONO % 6.1 % (3.8-10.2); NEUT % 65.8 % (42.8-82.8); PLATELET COUNT 179 10^3/uL (134-434); RBC 4.71 M/mm3 (4.00-5.60); RDW 14.4 % (11.9-15.9); WHITE BLOOD COUNT 8.2 K/mm3 (4.0-10.0)
[2021-05-29 15:12] LABS: CHLORIDE 106 mmol/L (98-107); SODIUM 139 mmol/L (136-145)
[2021-05-29 15:15] LABS: ALBUMIN 4.2 g/dl (3.4-5.0); ANION GAP 8 MMOL/L (8-16); BLOOD UREA NITROGEN 15.1 mg/dL (7-18); CALCIUM 9.4 mg/dL (8.5-10.1); CO2 25 mmol/L (21-32); LIPASE 105 U/L (73-393)
[2021-05-29 15:16] LABS: GLUCOSE,RANDOM 78 mg/dL (74-106)
[2021-05-29 15:18] LABS: SGPT/ALT 31 U/L (13-61)
[2021-05-29 15:19] LABS: SGOT/AST 14 U/L (15-37)
[2021-05-29 15:20] LABS: BILIRUBIN,TOTAL 0.6 mg/dL (0.2-1); TOT PROT 7.7 g/dl (6.4-8.2)
[2021-05-29 15:21] LABS: ALK PHOS 102 U/L (45-117)
== END 2021-05-29 15:47 | disposition home or self-care (01) ==
LOC: JER 12:11
PROC: 3E033GC Introduction of Other Therapeutic Substance into Peripheral Vein, Percutaneous Approach (ICD-10-PCS; principal; 2021-05-29)
DX: R42 Dizziness and giddiness (principal); R11.0 Nausea
CPT/HCPCS: 36415; 80053; 82550; 83690; 84484; 85025; 93005; 93010; 99284-25

== ENCOUNTER 2021-07-07 16:25 | Inpatient (IN) | payer OTHER ==
[2021-07-07 19:40] VITALS: BMI 37.9
[2021-07-07] MEDS ORDERED: MAGNESIUM HYDROX 2400MG/30ML ORAL SUSPENSION 30 ML CUP PO PRN (21:57)
[2021-07-07] MEDS ORDERED: ACETAMINOPHEN 325 MG TABLET (FP) PO PRN (21:57)
[2021-07-07] MEDS ORDERED: P-EPHED 60MG/TRIPROLIDI 2.5MG TABLET PO PRN (21:57)
[2021-07-07] MEDS ORDERED: MAGNESIUM CITRATE 300 ML BOTTLE PO PRN (21:57)
[2021-07-07] MEDS ORDERED: IBUPROFEN 400 MG TABLET (FP) PO PRN (21:57)
[2021-07-07] MEDS ORDERED: LOPERAMIDE HCL 2 MG CAPSULE PO PRN (21:57)
[2021-07-07] MEDS ORDERED: guaiFENesin 200 MG/10 ML 10 ML UNIT-DOSE CUPS PO PRN (21:57)
[2021-07-07] MEDS ORDERED: hydrOXYzine PAMOATE 25 MG CAPSULE (FP) PO PRN (21:57)
[2021-07-07] MEDS ORDERED: MAG HYDROX/AL HYDROX/SIMETH 30 ML UNIT-DOSE CUP PO PRN (21:57)
[2021-07-07] MEDS ORDERED: MELATONIN 5 MG TABLETS PO SCH (22:00)
[2021-07-07] MEDS ORDERED: THIAMINE HCL 100 MG TABLET (FP) PO SCH (22:00)
[2021-07-07] MEDS ORDERED: NICOTINE POLACRILEX 2 MG GUM BUC PRN (22:06)
[2021-07-08 02:15] VITALS: BP 132/76; PULSE 77; TEMP 98.4
[2021-07-08] MEDS ORDERED: PANTOPRAZOLE 40 MG TABLET PO SCH (10:00)
[2021-07-08] MEDS ORDERED: PRENATAL VITAMINS W/ FOLIC ACID TABLET (FP) PO SCH (10:00)
[2021-07-08 10:47] LABS: ALBUMIN 3.5 g/dl (3.4-5.0); BLOOD UREA NITROGEN 15.1 mg/dL (7-18); HEMATOCRIT 39.7 % (35.4-49); HEMOGLOBIN 13.7 GM/dL (11.7-16.9); MCH 30.6 pg (25.7-33.7); MCHC 34.5 g/dl (32.0-35.9); MEAN CELL VOLUME 88.9 fl (80-96); MEAN PLT VOLUME 9.4 fl (7.5-11.1); PLATELET COUNT 177 10^3/uL (134-434); RBC 4.47 M/mm3 (4.00-5.60); WHITE BLOOD COUNT 8.2 K/mm3 (4.0-10.0)
[2021-07-08 10:49] LABS: BILIRUBIN,TOTAL 0.3 mg/dL (0.2-1); TOT PROT 6.7 g/dl (6.4-8.2)
[2021-07-08 10:50] LABS: CREATININE 0.9 mg/dL (0.55-1.3)
[2021-07-08] MEDS ORDERED: FLU VACC QS2021-22(6MOS UP)/PF 60 MCG/0.5 ML SYRINGE IM ONE (12:00)
[2021-07-08 12:26] LABS: HIV INTERPRETATION NEGATIVE (NEGATIVE)
== END 2021-07-08 15:15 | disposition home or self-care (01) | DRG 895 ==
LOC: YASAS 16:25 → Y3W 23:42
PROVIDERS: ADMIT Allergy & Immunology; ATTEND Allergy & Immunology
PROC: HZ42ZZZ Group Counseling for Substance Abuse Treatment, Cognitive-Behavioral (ICD-10-PCS; principal; 2021-07-08)
DX: F10.20 Alcohol dependence, uncomplicated (principal); F14.20 Cocaine dependence, uncomplicated; F17.210 Nicotine dependence, cigarettes, uncomplicated; F31.9 Bipolar disorder, unspecified; I10 Essential (primary) hypertension; J45.909 Unspecified asthma, uncomplicated; K21.9 Gastro-esophageal reflux disease without esophagitis; M54.5 Low back pain; G89.29 Other chronic pain; Z88.8 Allergy status to other drugs, medicaments and biological substances; Z91.038 Other insect allergy status; Z56.0 Unemployment, unspecified; Z59.0 Homelessness
CPT/HCPCS: 36415; 80053; 85027; 86780; 87389; C9803; U0003; U0005

== ENCOUNTER 2023-08-05 12:32 | Inpatient (IN) | payer OTHER ==
[2023-08-05 14:20] VITALS: BMI 28.5
[2023-08-05] MEDS ORDERED: MAGNESIUM HYDROX 2400MG/30ML ORAL SUSPENSION 30 ML CUP PO PRN (19:10)
[2023-08-05] MEDS ORDERED: MAG HYDROX/AL HYDROX/SIMETH 30 ML UNIT-DOSE CUP PO PRN (19:10)
[2023-08-05] MEDS ORDERED: BENZONATATE 200 MG CAPSULE PO PRN (19:10)
[2023-08-05] MEDS ORDERED: IBUPROFEN 600 MG TABLET (FP) PO PRN (19:10)
[2023-08-05] MEDS ORDERED: COLLOIDAL OATMEAL 1 BAR EACH TP PRN (19:10)
[2023-08-05] MEDS ORDERED: P-EPHED 60MG/TRIPROLIDI 2.5MG TABLET PO PRN (19:10)
[2023-08-05] MEDS ORDERED: guaiFENesin 600 MG TABLET.ER (FP) PO PRN (19:10)
[2023-08-05] MEDS ORDERED: IBUPROFEN 400 MG TABLET (FP) PO PRN (19:10)
[2023-08-05] MEDS ORDERED: POLYETHYLENE GLYCOL (HEALTHYLAX) 3350 17 GM PACKET PO PRN (19:10)
[2023-08-05] MEDS ORDERED: hydrOXYzine PAMOATE 25 MG CAPSULE (FP) PO PRN (19:10)
[2023-08-05] MEDS ORDERED: LOPERAMIDE HCL 2 MG CAPSULE PO PRN (19:10)
[2023-08-06] MEDS: THIAMINE HCL 100 MG TABLET (FP) PO SCH ×2 (02:41→21:55)
[2023-08-06] MEDS: MELATONIN 5 MG TABLETS PO SCH ×2 (02:41→21:54)
[2023-08-06] MEDS: PRENATAL VITAMINS W/ FOLIC ACID TABLET (FP) PO SCH (09:54)
[2023-08-06] MEDS: NICOTINE POLACRILEX 2 MG GUM BUC PRN ×2 (09:54→20:10)
[2023-08-06 11:37] LABS: CHLORIDE 105 mmol/L (98-107); SODIUM 138 mmol/L (136-145)
[2023-08-06 11:42] LABS: HEMOGLOBIN 13.6 GM/dL (11.7-16.9); MEAN CELL VOLUME 85.2 fl (80-96); MEAN PLT VOLUME 8.8 fl (7.5-11.1); PLATELET COUNT 184 10^3/uL (134-434); RDW 13.5 % (11.9-15.9); WHITE BLOOD COUNT 8.3 K/mm3 (4.0-10.0)
[2023-08-06 11:51] LABS: ALBUMIN 3.5 g/dl (3.4-5.0); ANION GAP 6 mmol/L (4-13); CALCIUM 9.1 mg/dL (8.5-10.1); CO2 27 mmol/L (21-32)
[2023-08-06 11:52] LABS: BLOOD UREA NITROGEN 18.1 mg/dL (7-18); GLUCOSE,RANDOM 84 mg/dL (74-106)
[2023-08-06 11:54] LABS: SGOT/AST 16 U/L (15-37); SGPT/ALT 40 U/L (13-61)
[2023-08-06 11:56] LABS: BILIRUBIN,TOTAL 0.3 mg/dL (0.2-1); TOT PROT 6.8 g/dl (6.4-8.2)
[2023-08-06 11:57] LABS: ALK PHOS 90 U/L (45-117)
[2023-08-07] MEDS: NICOTINE POLACRILEX 2 MG GUM BUC PRN ×3 (06:04→22:09)
[2023-08-07] MEDS: PRENATAL VITAMINS W/ FOLIC ACID TABLET (FP) PO SCH (10:03)
[2023-08-07] MEDS: FLUoxetine HCL 20 MG CAPSULE PO SCH (10:04)
[2023-08-07] MEDS: PANTOPRAZOLE 40 MG TABLET PO SCH (10:41)
[2023-08-07] MEDS: LISINOPRIL 10 MG TABLET PO SCH (10:41)
[2023-08-07] MEDS: DOCUSATE SODIUM 100 MG CAPSULE (FP) PO SCH (10:41)
[2023-08-07] MEDS: MELATONIN 5 MG TABLETS PO SCH ×2 (22:00→22:11)
[2023-08-07] MEDS: HYDROCORTISONE ACETATE 25 MG/SUPP.RECT RC SCH (22:00)
[2023-08-07] MEDS: THIAMINE HCL 100 MG TABLET (FP) PO SCH (22:00)
[2023-08-08] MEDS: NICOTINE POLACRILEX 2 MG GUM BUC PRN ×4 (01:10→21:35)
[2023-08-08] MEDS: LISINOPRIL 10 MG TABLET PO SCH (10:05)
[2023-08-08] MEDS: PANTOPRAZOLE 40 MG TABLET PO SCH (10:05)
[2023-08-08] MEDS: FLUoxetine HCL 20 MG CAPSULE PO SCH (10:05)
[2023-08-08] MEDS: DOCUSATE SODIUM 100 MG CAPSULE (FP) PO SCH (10:05)
[2023-08-08] MEDS: PRENATAL VITAMINS W/ FOLIC ACID TABLET (FP) PO SCH (10:05)
[2023-08-08] MEDS: HYDROCORTISONE ACETATE 25 MG/SUPP.RECT RC SCH (21:33)
[2023-08-08] MEDS: THIAMINE HCL 100 MG TABLET (FP) PO SCH (21:33)
[2023-08-08] MEDS: MELATONIN 5 MG TABLETS PO SCH (21:33)
[2023-08-09] MEDS: PANTOPRAZOLE 40 MG TABLET PO SCH (10:09)
[2023-08-09] MEDS: LISINOPRIL 10 MG TABLET PO SCH (10:09)
[2023-08-09] MEDS: DOCUSATE SODIUM 100 MG CAPSULE (FP) PO SCH (10:09)
[2023-08-09] MEDS: FLUoxetine HCL 20 MG CAPSULE PO SCH (10:09)
[2023-08-09] MEDS: PRENATAL VITAMINS W/ FOLIC ACID TABLET (FP) PO SCH (10:09)
[2023-08-09 11:49] LABS: PH,URINE 5.5 (5.0-8.0); URINE APPEARANCE CLEAR; URINE BILIRUBIN NEGATIVE (NEGATIVE); URINE COLOR YELLOW; URINE GLUCOSE (UA) NEGATIVE (NEGATIVE); URINE KETONE NEGATIVE (NEGATIVE); URINE LEUK ESTERASE NEGATIVE (NEGATIVE); URINE NITRITE NEGATIVE (NEGATIVE); URINE PROTEIN NEGATIVE (NEGATIVE); URINE UROBILINOGEN 0.2 mg/dL (0.2-1.0)
[2023-08-09] MEDS: NICOTINE POLACRILEX 2 MG GUM BUC PRN ×2 (18:16→21:29)
[2023-08-09] MEDS: MELATONIN 5 MG TABLETS PO SCH (21:28)
[2023-08-09] MEDS: THIAMINE HCL 100 MG TABLET (FP) PO SCH (21:28)
[2023-08-09] MEDS: HYDROCORTISONE ACETATE 25 MG/SUPP.RECT RC SCH (21:29)
[2023-08-10] MEDS: DOCUSATE SODIUM 100 MG CAPSULE (FP) PO SCH (09:46)
[2023-08-10] MEDS: FLUoxetine HCL 20 MG CAPSULE PO SCH (09:46)
[2023-08-10] MEDS: PANTOPRAZOLE 40 MG TABLET PO SCH (09:46)
[2023-08-10] MEDS: LISINOPRIL 10 MG TABLET PO SCH (09:46)
[2023-08-10] MEDS: PRENATAL VITAMINS W/ FOLIC ACID TABLET (FP) PO SCH (09:46)
[2023-08-10] MEDS ORDERED: BISMUTH SUBSALICYLATE 524 MG/30 ML PO PRN (15:22)
[2023-08-10] MEDS: ACETAMINOPHEN 325 MG TABLET (FP) PO PRN (17:45)
[2023-08-10] MEDS: THIAMINE HCL 100 MG TABLET (FP) PO SCH (21:21)
[2023-08-10] MEDS: MELATONIN 5 MG TABLETS PO SCH (21:21)
[2023-08-10] MEDS: HYDROCORTISONE ACETATE 25 MG/SUPP.RECT RC SCH (21:21)
[2023-08-10] MEDS: NICOTINE POLACRILEX 2 MG GUM BUC PRN (21:22)
[2023-08-11] MEDS: FLUoxetine HCL 20 MG CAPSULE PO SCH (09:39)
[2023-08-11] MEDS: PRENATAL VITAMINS W/ FOLIC ACID TABLET (FP) PO SCH (09:39)
[2023-08-11] MEDS: DOCUSATE SODIUM 100 MG CAPSULE (FP) PO SCH (09:39)
[2023-08-11] MEDS: LISINOPRIL 10 MG TABLET PO SCH (09:39)
[2023-08-11] MEDS: PANTOPRAZOLE 40 MG TABLET PO SCH (09:39)
[2023-08-11] MEDS: ACETAMINOPHEN 325 MG TABLET (FP) PO PRN (11:39)
[2023-08-11] MEDS: HYDROCORTISONE ACETATE 25 MG/SUPP.RECT RC SCH (21:10)
[2023-08-11] MEDS: MELATONIN 5 MG TABLETS PO SCH (21:10)
[2023-08-11] MEDS: THIAMINE HCL 100 MG TABLET (FP) PO SCH (21:10)
[2023-08-12] MEDS: PRENATAL VITAMINS W/ FOLIC ACID TABLET (FP) PO SCH (10:27)
[2023-08-12] MEDS: FLUoxetine HCL 20 MG CAPSULE PO SCH (10:28)
[2023-08-12] MEDS: DOCUSATE SODIUM 100 MG CAPSULE (FP) PO SCH (10:28)
[2023-08-12] MEDS: PANTOPRAZOLE 40 MG TABLET PO SCH (10:28)
[2023-08-12] MEDS: LISINOPRIL 10 MG TABLET PO SCH (10:28)
[2023-08-12] MEDS: BENZOCAINE/MENTHOL (CHLORASEPTIC ) LOZENGE MM PRN (13:21)
[2023-08-12] MEDS: HYDROCORTISONE ACETATE 25 MG/SUPP.RECT RC SCH (21:04)
[2023-08-12] MEDS: MELATONIN 5 MG TABLETS PO SCH (21:04)
[2023-08-12] MEDS: THIAMINE HCL 100 MG TABLET (FP) PO SCH (21:04)
[2023-08-12] MEDS: NICOTINE POLACRILEX 2 MG GUM BUC PRN (21:05)
[2023-08-13] MEDS: PANTOPRAZOLE 40 MG TABLET PO SCH (09:53)
[2023-08-13] MEDS: LISINOPRIL 10 MG TABLET PO SCH (09:53)
[2023-08-13] MEDS: PRENATAL VITAMINS W/ FOLIC ACID TABLET (FP) PO SCH (09:53)
[2023-08-13] MEDS: DOCUSATE SODIUM 100 MG CAPSULE (FP) PO SCH (09:53)
[2023-08-13] MEDS: FLUoxetine HCL 20 MG CAPSULE PO SCH (09:53)
[2023-08-13] MEDS ORDERED: FLU VACCINE (FLULAVAL) PF 60 MCG/0.5 ML SYRINGE 2023-2024 IM ONE (12:00)
[2023-08-13] MEDS ORDERED: PNEUMOC 20-VAL CONJ-DIP CRM/PF 0.5 ML SYRINGE IM ONE (12:00)
[2023-08-13] MEDS: NICOTINE POLACRILEX 2 MG GUM BUC PRN ×2 (12:54→21:30)
[2023-08-13] MEDS: HYDROCORTISONE ACETATE 25 MG/SUPP.RECT RC SCH (21:28)
[2023-08-13] MEDS: MELATONIN 5 MG TABLETS PO SCH (21:29)
[2023-08-13] MEDS: THIAMINE HCL 100 MG TABLET (FP) PO SCH (21:29)
[2023-08-14] MEDS: PRENATAL VITAMINS W/ FOLIC ACID TABLET (FP) PO SCH (10:11)
[2023-08-14] MEDS: LISINOPRIL 10 MG TABLET PO SCH (10:11)
[2023-08-14] MEDS: PANTOPRAZOLE 40 MG TABLET PO SCH (10:11)
[2023-08-14] MEDS: FLUoxetine HCL 20 MG CAPSULE PO SCH (10:11)
[2023-08-14] MEDS: DOCUSATE SODIUM 100 MG CAPSULE (FP) PO SCH (10:11)
[2023-08-14] MEDS: BENZOCAINE/MENTHOL (CHLORASEPTIC ) LOZENGE MM PRN (10:13)
[2023-08-14] MEDS: NICOTINE POLACRILEX 2 MG GUM BUC PRN ×2 (18:44→21:09)
[2023-08-14] MEDS: THIAMINE HCL 100 MG TABLET (FP) PO SCH (21:08)
[2023-08-14] MEDS: MELATONIN 5 MG TABLETS PO SCH (21:08)
[2023-08-14] MEDS: HYDROCORTISONE ACETATE 25 MG/SUPP.RECT RC SCH (21:08)
[2023-08-15] MEDS: BENZOCAINE/MENTHOL (CHLORASEPTIC ) LOZENGE MM PRN (06:15)
[2023-08-15] MEDS: PRENATAL VITAMINS W/ FOLIC ACID TABLET (FP) PO SCH (09:46)
[2023-08-15] MEDS: PANTOPRAZOLE 40 MG TABLET PO SCH (09:46)
[2023-08-15] MEDS: DOCUSATE SODIUM 100 MG CAPSULE (FP) PO SCH (09:46)
[2023-08-15] MEDS: LISINOPRIL 10 MG TABLET PO SCH (09:47)
[2023-08-15] MEDS: FLUoxetine HCL 20 MG CAPSULE PO SCH (09:47)
[2023-08-15] MEDS: ACETAMINOPHEN 325 MG TABLET (FP) PO PRN (19:17)
[2023-08-15] MEDS: HYDROCORTISONE ACETATE 25 MG/SUPP.RECT RC SCH (21:11)
[2023-08-15] MEDS: MELATONIN 5 MG TABLETS PO SCH (21:11)
[2023-08-15] MEDS: NICOTINE POLACRILEX 2 MG GUM BUC PRN (21:11)
[2023-08-15] MEDS: THIAMINE HCL 100 MG TABLET (FP) PO SCH (21:11)
[2023-08-16] MEDS: PRENATAL VITAMINS W/ FOLIC ACID TABLET (FP) PO SCH (10:10)
[2023-08-16] MEDS: DOCUSATE SODIUM 100 MG CAPSULE (FP) PO SCH (10:10)
[2023-08-16] MEDS: PANTOPRAZOLE 40 MG TABLET PO SCH (10:10)
[2023-08-16] MEDS: LISINOPRIL 10 MG TABLET PO SCH (10:10)
[2023-08-16] MEDS: FLUoxetine HCL 20 MG CAPSULE PO SCH (10:10)
[2023-08-16] MEDS: BENZOCAINE/MENTHOL (CHLORASEPTIC ) LOZENGE MM PRN (10:11)
[2023-08-16] MEDS: HYDROCORTISONE ACETATE 25 MG/SUPP.RECT RC SCH (21:24)
[2023-08-16] MEDS: THIAMINE HCL 100 MG TABLET (FP) PO SCH (21:24)
[2023-08-16] MEDS: MELATONIN 5 MG TABLETS PO SCH (21:25)
[2023-08-16] MEDS: NICOTINE POLACRILEX 2 MG GUM BUC PRN (21:25)
[2023-08-16] MEDS: ACETAMINOPHEN 325 MG TABLET (FP) PO PRN (22:45)
[2023-08-17] MEDS: LISINOPRIL 10 MG TABLET PO SCH (09:48)
[2023-08-17] MEDS: DOCUSATE SODIUM 100 MG CAPSULE (FP) PO SCH (09:48)
[2023-08-17] MEDS: PRENATAL VITAMINS W/ FOLIC ACID TABLET (FP) PO SCH (09:48)
[2023-08-17] MEDS: PANTOPRAZOLE 40 MG TABLET PO SCH (09:48)
[2023-08-17] MEDS: FLUoxetine HCL 20 MG CAPSULE PO SCH (09:48)
[2023-08-17] MEDS: THIAMINE HCL 100 MG TABLET (FP) PO SCH (21:04)
[2023-08-17] MEDS: MELATONIN 5 MG TABLETS PO SCH (21:05)
[2023-08-17] MEDS: HYDROCORTISONE ACETATE 25 MG/SUPP.RECT RC SCH (21:05)
[2023-08-18] MEDS: LISINOPRIL 10 MG TABLET PO SCH (10:05)
[2023-08-18] MEDS: FLUoxetine HCL 20 MG CAPSULE PO SCH (10:05)
[2023-08-18] MEDS: PANTOPRAZOLE 40 MG TABLET PO SCH (10:05)
[2023-08-18] MEDS: DOCUSATE SODIUM 100 MG CAPSULE (FP) PO SCH (10:05)
[2023-08-18] MEDS: PRENATAL VITAMINS W/ FOLIC ACID TABLET (FP) PO SCH (10:05)
[2023-08-18] MEDS: BENZOCAINE/MENTHOL (CHLORASEPTIC ) LOZENGE MM PRN (12:34)
[2023-08-18] MEDS: THIAMINE HCL 100 MG TABLET (FP) PO SCH (21:14)
[2023-08-18] MEDS: HYDROCORTISONE ACETATE 25 MG/SUPP.RECT RC SCH (21:14)
[2023-08-18] MEDS: NICOTINE POLACRILEX 2 MG GUM BUC PRN (21:15)
[2023-08-18] MEDS: MELATONIN 5 MG TABLETS PO SCH (21:15)
[2023-08-19] MEDS: PANTOPRAZOLE 40 MG TABLET PO SCH (10:17)
[2023-08-19] MEDS: DOCUSATE SODIUM 100 MG CAPSULE (FP) PO SCH (10:17)
[2023-08-19] MEDS: FLUoxetine HCL 20 MG CAPSULE PO SCH (10:17)
[2023-08-19] MEDS: PRENATAL VITAMINS W/ FOLIC ACID TABLET (FP) PO SCH (10:17)
[2023-08-19] MEDS: LISINOPRIL 10 MG TABLET PO SCH (10:17)
[2023-08-19] MEDS: BENZOCAINE/MENTHOL (CHLORASEPTIC ) LOZENGE MM PRN (10:18)
[2023-08-19] MEDS: SODIUM CHLORIDE NASAL SPRAY 44 ML BOTTLE NS PRN (10:55)
[2023-08-19] MEDS: HYDROCORTISONE ACETATE 25 MG/SUPP.RECT RC SCH (21:32)
[2023-08-19] MEDS: MELATONIN 5 MG TABLETS PO SCH (21:32)
[2023-08-19] MEDS: THIAMINE HCL 100 MG TABLET (FP) PO SCH (21:32)
[2023-08-19] MEDS: NICOTINE POLACRILEX 2 MG GUM BUC PRN (21:32)
[2023-08-20] MEDS: FLUoxetine HCL 20 MG CAPSULE PO SCH (10:20)
[2023-08-20] MEDS: LISINOPRIL 10 MG TABLET PO SCH (10:20)
[2023-08-20] MEDS: PANTOPRAZOLE 40 MG TABLET PO SCH (10:20)
[2023-08-20] MEDS: DOCUSATE SODIUM 100 MG CAPSULE (FP) PO SCH (10:20)
[2023-08-20] MEDS: PRENATAL VITAMINS W/ FOLIC ACID TABLET (FP) PO SCH (10:20)
[2023-08-20] MEDS: THIAMINE HCL 100 MG TABLET (FP) PO SCH (21:21)
[2023-08-20] MEDS: NICOTINE POLACRILEX 2 MG GUM BUC PRN (21:21)
[2023-08-20] MEDS: HYDROCORTISONE ACETATE 25 MG/SUPP.RECT RC SCH (21:21)
[2023-08-20] MEDS: MELATONIN 5 MG TABLETS PO SCH (21:22)
[2023-08-21] MEDS: FLUoxetine HCL 20 MG CAPSULE PO SCH (09:35)
[2023-08-21] MEDS: LISINOPRIL 10 MG TABLET PO SCH (09:35)
[2023-08-21] MEDS: PRENATAL VITAMINS W/ FOLIC ACID TABLET (FP) PO SCH (09:35)
[2023-08-21] MEDS: PANTOPRAZOLE 40 MG TABLET PO SCH (09:35)
[2023-08-21] MEDS: DOCUSATE SODIUM 100 MG CAPSULE (FP) PO SCH (09:35)
[2023-08-21] MEDS: BENZOCAINE/MENTHOL (CHLORASEPTIC ) LOZENGE MM PRN (09:36)
[2023-08-21] MEDS: HYDROCORTISONE ACETATE 25 MG/SUPP.RECT RC SCH (21:03)
[2023-08-21] MEDS: THIAMINE HCL 100 MG TABLET (FP) PO SCH (21:03)
[2023-08-21] MEDS: MELATONIN 5 MG TABLETS PO SCH (21:04)
[2023-08-21] MEDS: NICOTINE POLACRILEX 2 MG GUM BUC PRN (21:04)
[2023-08-22] MEDS: LISINOPRIL 10 MG TABLET PO SCH (10:08)
[2023-08-22] MEDS: PANTOPRAZOLE 40 MG TABLET PO SCH (10:08)
[2023-08-22] MEDS: BENZOCAINE/MENTHOL (CHLORASEPTIC ) LOZENGE MM PRN (10:08)
[2023-08-22] MEDS: DOCUSATE SODIUM 100 MG CAPSULE (FP) PO SCH (10:08)
[2023-08-22] MEDS: PRENATAL VITAMINS W/ FOLIC ACID TABLET (FP) PO SCH (10:08)
[2023-08-22] MEDS: FLUoxetine HCL 20 MG CAPSULE PO SCH (10:08)
[2023-08-22] MEDS: ACETAMINOPHEN 325 MG TABLET (FP) PO PRN (14:30)
[2023-08-22] MEDS: THIAMINE HCL 100 MG TABLET (FP) PO SCH (21:15)
[2023-08-22] MEDS: MELATONIN 5 MG TABLETS PO SCH (21:15)
[2023-08-22] MEDS: HYDROCORTISONE ACETATE 25 MG/SUPP.RECT RC SCH (21:15)
[2023-08-23] MEDS: SODIUM CHLORIDE NASAL SPRAY 44 ML BOTTLE NS PRN (09:40)
[2023-08-23] MEDS: PRENATAL VITAMINS W/ FOLIC ACID TABLET (FP) PO SCH (09:40)
[2023-08-23] MEDS: LISINOPRIL 10 MG TABLET PO SCH (09:40)
[2023-08-23] MEDS: DOCUSATE SODIUM 100 MG CAPSULE (FP) PO SCH (09:40)
[2023-08-23] MEDS: FLUoxetine HCL 20 MG CAPSULE PO SCH (09:40)
[2023-08-23] MEDS: PANTOPRAZOLE 40 MG TABLET PO SCH (09:40)
[2023-08-23] MEDS: BENZOCAINE/MENTHOL (CHLORASEPTIC ) LOZENGE MM PRN (09:41)
[2023-08-23] MEDS: HYDROCORTISONE ACETATE 25 MG/SUPP.RECT RC SCH (21:17)
[2023-08-23] MEDS: THIAMINE HCL 100 MG TABLET (FP) PO SCH (21:17)
[2023-08-23] MEDS: MELATONIN 5 MG TABLETS PO SCH (21:18)
[2023-08-23] MEDS: NICOTINE POLACRILEX 2 MG GUM BUC PRN (21:18)
[2023-08-24] MEDS: PRENATAL VITAMINS W/ FOLIC ACID TABLET (FP) PO SCH (10:20)
[2023-08-24] MEDS: DOCUSATE SODIUM 100 MG CAPSULE (FP) PO SCH (10:20)
[2023-08-24] MEDS: FLUoxetine HCL 20 MG CAPSULE PO SCH (10:20)
[2023-08-24] MEDS: PANTOPRAZOLE 40 MG TABLET PO SCH (10:20)
[2023-08-24] MEDS: LISINOPRIL 10 MG TABLET PO SCH (10:20)
[2023-08-24] MEDS: HYDROCORTISONE ACETATE 25 MG/SUPP.RECT RC SCH (21:07)
[2023-08-24] MEDS: THIAMINE HCL 100 MG TABLET (FP) PO SCH (21:07)
[2023-08-24] MEDS: MELATONIN 5 MG TABLETS PO SCH (21:07)
[2023-08-24] MEDS: NICOTINE POLACRILEX 2 MG GUM BUC PRN (21:07)
[2023-08-25] MEDS: LISINOPRIL 10 MG TABLET PO SCH (10:18)
[2023-08-25] MEDS: PRENATAL VITAMINS W/ FOLIC ACID TABLET (FP) PO SCH (10:18)
[2023-08-25] MEDS: FLUoxetine HCL 20 MG CAPSULE PO SCH (10:19)
[2023-08-25] MEDS: PANTOPRAZOLE 40 MG TABLET PO SCH (10:19)
[2023-08-25] MEDS: DOCUSATE SODIUM 100 MG CAPSULE (FP) PO SCH (10:19)
[2023-08-25] MEDS: SODIUM CHLORIDE NASAL SPRAY 44 ML BOTTLE NS PRN (10:19)
[2023-08-25] MEDS: HYDROCORTISONE ACETATE 25 MG/SUPP.RECT RC SCH (21:22)
[2023-08-25] MEDS: THIAMINE HCL 100 MG TABLET (FP) PO SCH (21:22)
[2023-08-25] MEDS: MELATONIN 5 MG TABLETS PO SCH (21:23)
[2023-08-26] MEDS: PRENATAL VITAMINS W/ FOLIC ACID TABLET (FP) PO SCH (09:59)
[2023-08-26] MEDS: PANTOPRAZOLE 40 MG TABLET PO SCH (10:00)
[2023-08-26] MEDS: SODIUM CHLORIDE NASAL SPRAY 44 ML BOTTLE NS PRN (10:00)
[2023-08-26] MEDS: LISINOPRIL 10 MG TABLET PO SCH (10:00)
[2023-08-26] MEDS: DOCUSATE SODIUM 100 MG CAPSULE (FP) PO SCH (10:00)
[2023-08-26] MEDS: FLUoxetine HCL 20 MG CAPSULE PO SCH (10:00)
[2023-08-26] MEDS: MELATONIN 5 MG TABLETS PO SCH (21:06)
[2023-08-26] MEDS: HYDROCORTISONE ACETATE 25 MG/SUPP.RECT RC SCH (21:06)
[2023-08-26] MEDS: THIAMINE HCL 100 MG TABLET (FP) PO SCH (21:06)
[2023-08-26] MEDS: NICOTINE POLACRILEX 2 MG GUM BUC PRN (21:06)
[2023-08-27] MEDS: PRENATAL VITAMINS W/ FOLIC ACID TABLET (FP) PO SCH (09:48)
[2023-08-27] MEDS: SODIUM CHLORIDE NASAL SPRAY 44 ML BOTTLE NS PRN (09:48)
[2023-08-27] MEDS: LISINOPRIL 10 MG TABLET PO SCH (09:49)
[2023-08-27] MEDS: FLUoxetine HCL 20 MG CAPSULE PO SCH (09:49)
[2023-08-27] MEDS: PANTOPRAZOLE 40 MG TABLET PO SCH (09:49)
[2023-08-27] MEDS: DOCUSATE SODIUM 100 MG CAPSULE (FP) PO SCH (09:49)
[2023-08-27] MEDS: NICOTINE POLACRILEX 2 MG GUM BUC PRN ×2 (14:44→21:01)
[2023-08-27] MEDS: THIAMINE HCL 100 MG TABLET (FP) PO SCH (21:01)
[2023-08-27] MEDS: MELATONIN 5 MG TABLETS PO SCH (21:01)
[2023-08-27] MEDS: HYDROCORTISONE ACETATE 25 MG/SUPP.RECT RC SCH (21:01)
[2023-08-28] MEDS: PANTOPRAZOLE 40 MG TABLET PO SCH (09:49)
[2023-08-28] MEDS: SODIUM CHLORIDE NASAL SPRAY 44 ML BOTTLE NS PRN (09:49)
[2023-08-28] MEDS: PRENATAL VITAMINS W/ FOLIC ACID TABLET (FP) PO SCH (09:49)
[2023-08-28] MEDS: DOCUSATE SODIUM 100 MG CAPSULE (FP) PO SCH (09:50)
[2023-08-28] MEDS: FLUoxetine HCL 20 MG CAPSULE PO SCH (09:50)
[2023-08-28] MEDS: LISINOPRIL 10 MG TABLET PO SCH (09:50)
[2023-08-28] MEDS: NICOTINE POLACRILEX 2 MG GUM BUC PRN ×3 (13:18→21:23)
[2023-08-28] MEDS: MELATONIN 5 MG TABLETS PO SCH (21:23)
[2023-08-28] MEDS: HYDROCORTISONE ACETATE 25 MG/SUPP.RECT RC SCH (21:23)
[2023-08-28] MEDS: THIAMINE HCL 100 MG TABLET (FP) PO SCH (21:23)
[2023-08-29 09:07] VITALS: RESP 18
[2023-08-29] MEDS: DOCUSATE SODIUM 100 MG CAPSULE (FP) PO SCH (10:01)
[2023-08-29] MEDS: FLUoxetine HCL 20 MG CAPSULE PO SCH (10:01)
[2023-08-29] MEDS: LISINOPRIL 10 MG TABLET PO SCH (10:02)
[2023-08-29] MEDS: PRENATAL VITAMINS W/ FOLIC ACID TABLET (FP) PO SCH (10:02)
[2023-08-29] MEDS: PANTOPRAZOLE 40 MG TABLET PO SCH (10:02)
[2023-08-29] MEDS: NICOTINE POLACRILEX 2 MG GUM BUC PRN (21:19)
[2023-08-29] MEDS: HYDROCORTISONE ACETATE 25 MG/SUPP.RECT RC SCH (21:19)
[2023-08-29] MEDS: THIAMINE HCL 100 MG TABLET (FP) PO SCH (21:19)
[2023-08-29] MEDS: MELATONIN 5 MG TABLETS PO SCH (21:19)
[2023-08-30 07:13] VITALS: BP 112/70; PULSE 98; TEMP 97.5
[2023-08-30] MEDS: LISINOPRIL 10 MG TABLET PO SCH (09:14)
[2023-08-30] MEDS: DOCUSATE SODIUM 100 MG CAPSULE (FP) PO SCH (09:14)
[2023-08-30] MEDS: PRENATAL VITAMINS W/ FOLIC ACID TABLET (FP) PO SCH (09:14)
[2023-08-30] MEDS: PANTOPRAZOLE 40 MG TABLET PO SCH (09:14)
[2023-08-30] MEDS: FLUoxetine HCL 20 MG CAPSULE PO SCH (09:14)
[2023-08-30] MEDS: BENZOCAINE/MENTHOL (CHLORASEPTIC ) LOZENGE MM PRN (09:15)
== END 2023-08-30 10:13 | disposition home or self-care (01) | DRG 895 ==
LOC: YASAS 12:32 → Y3W 08-06 00:19
PROVIDERS: ADMIT Allergy & Immunology; ATTEND Psychiatry & Neurology Pain Medicine
PROC: HZ42ZZZ Group Counseling for Substance Abuse Treatment, Cognitive-Behavioral (ICD-10-PCS; principal; 2023-08-06)
DX: F10.20 Alcohol dependence, uncomplicated (principal); F13.20 Sedative, hypnotic or anxiolytic dependence, uncomplicated; F19.280 Other psychoactive substance dependence with psychoactive substance-induced anxiety disorder; F17.210 Nicotine dependence, cigarettes, uncomplicated; F19.24 Other psychoactive substance dependence with psychoactive substance-induced mood disorder; F31.9 Bipolar disorder, unspecified; F41.9 Anxiety disorder, unspecified; I10 Essential (primary) hypertension; K21.9 Gastro-esophageal reflux disease without esophagitis; M41.9 Scoliosis, unspecified; K64.9 Unspecified hemorrhoids; R09.81 Nasal congestion; Z91.199 Patient's noncompliance with other medical treatment and regimen due to unspecified reason
CPT/HCPCS: 36415; 80053; 80307; 81003; 85027; 86780; 87635; 90677; 90686; G0008

== ENCOUNTER 2024-02-13 10:13 | Emergency (ER) | payer OTHER ==
[2024-02-13 10:29] VITALS: BP 127/85; PULSE 96; RESP 20; TEMP 98.9; BMI 27.8
[2024-02-13] MEDS ORDERED: FAMOTIDINE 20 MG/50 ML IVPB 20 MG/50 ML MG IVPB ONE (11:03)
[2024-02-13] MEDS: ACETAMINOPHEN 1000 MG/100 ML BAG IVPB ONE (12:18)
[2024-02-13] MEDS: SODIUM CHLORIDE 1,000 ML IV STA (12:18)
[2024-02-13] MEDS: ONDANSETRON 4 MG/2 ML VIAL IVPUSH ONE (12:19)
[2024-02-13] MEDS ORDERED: ACETAMINOPHEN INJECTION 100 ML IVPB ONE (12:20)
[2024-02-13] MEDS ORDERED: ONDANSETRON 4 MG/2 ML VIAL ONE (12:20)
[2024-02-13 12:30] LABS: BASO % 0.5 % (0-2.0); EOS % 0.5 % (0-4.5); HEMATOCRIT 42.3 % (35.4-49); HEMOGLOBIN 14.4 GM/dL (11.7-16.9); MCH 28.2 pg (25.7-33.7); MEAN PLT VOLUME 9.1 fl (7.5-11.1); MONO % 5.3 % (3.8-10.2); NEUT % 66.7 % (42.8-82.8); PLATELET COUNT 214 10^3/uL (134-434); RDW 14.9 % (11.9-15.9); WHITE BLOOD COUNT 8.9 K/mm3 (4.0-10.0)
[2024-02-13 12:37] LABS: INR 1.06 (0.83-1.09)
[2024-02-13 12:40] LABS: ACTIVATED PTT 32.3 SECONDS (25.2-36.5)
[2024-02-13 12:55] LABS: POTASSIUM 4.3 mmol/L (3.5-5.1)
[2024-02-13 12:58] LABS: ALBUMIN 4.1 g/dl (3.4-5.0); BLOOD UREA NITROGEN 12.2 mg/dL (7-18)
[2024-02-13 13:01] LABS: CREATININE 0.9 mg/dL (0.55-1.3)
[2024-02-13 13:03] LABS: BILIRUBIN,TOTAL 0.6 mg/dL (0.2-1); TOT PROT 7.6 g/dl (6.4-8.2)
[2024-02-13 13:37] LABS: HIV INTERPRETATION NEGATIVE (NEGATIVE)
== END 2024-02-13 13:46 | disposition home or self-care (01) ==
LOC: JER 10:13
PROC: 3E030NZ Introduction of Analgesics, Hypnotics, Sedatives into Peripheral Vein, Open Approach (ICD-10-PCS; principal; 2024-02-13)
PROC: 3E030GC Introduction of Other Therapeutic Substance into Peripheral Vein, Open Approach (ICD-10-PCS; 2024-02-13)
PROC: 3E0337Z Introduction of Electrolytic and Water Balance Substance into Peripheral Vein, Percutaneous Approach (ICD-10-PCS; 2024-02-13)
DX: K92.0 Hematemesis (principal); R10.13 Epigastric pain; R10.30 Lower abdominal pain, unspecified
CPT/HCPCS: 36415; 80053; 82272; 83690; 83735; 85025; 85610; 85730; 87389; 99284-25; J0131